=== PATIENT | female | born 1950 | race Caucasian/White ===

== ENCOUNTER 2017-05-29 19:51 | Emergency (ER) | payer MEDICARE ==
--- NOTE | 2017-05-29 22:03 | RAD ---
TWO VIEWS OF THE LEFT HUMERUS 05/29/17 COMPARISON: None. HISTORY: Fall, trauma, pain. FINDINGS: There is a obliquely oriented mildly comminuted transverse fracture of the mid shaft left humerus. Di stal fracture fragment is displaced laterally b 1.8 cm and demonstrates dorsal angulation. IMPRESSION: Displaced and angulated mid shaft left humerus fracture. POS: [facility]
--- NOTE | 2017-05-29 22:25 | CT ---
HEAD CT WITHOUT CONTRAST 05/29/17 COMPARISON: None. HISTORY: Fall, trauma, pain. TECHNIQUE: Serial axial CT imaging at 5 mm intervals from vertex through skull base without contrast. FINDINGS: There is atherosclerotic calcification of the cavernous carotid arteries. The imaged paranasal sinuses/mastoid air cells are well aerated. There is no displaced calvarial frac ture. There is no intracranial hemorrhage, midline shift, or mass effect. There is an area of encephalomalacia involving the lateral posterior aspect of the right frontal niyah on, evidence of a prior right MCA infarction. IMPRESSION: Evidence of prior right MCA infarction. No intracranial hemorrhage or displaced calvarial fracture. POS: [facility]
== END 2017-05-29 20:55 | disposition home or self-care (01) ==
LOC: ERS 19:51
DX: S42.302A Unspecified fracture of shaft of humerus, left arm, initial encounter for closed fracture (principal); I10 Essential (primary) hypertension; J44.9 Chronic obstructive pulmonary disease, unspecified; F17.210 Nicotine dependence, cigarettes, uncomplicated; W22.8XXA Striking against or struck by other objects, initial encounter
CPT/HCPCS: 29105; 70450; 96374; 96376; 99406; J2270

== ENCOUNTER 2017-06-04 07:11 | Emergency (ER) | payer MEDICARE ==
--- NOTE | 2017-06-04 08:18 | RAD ---
TWO VIEWS LEFT HUMERUS: Date: 06-04-17 History: Left arm fracture. Patient reports increased pain and swelling. Patient has orthopedic appoi ntment tomorrow. Comparison: 05-29-17 FINDINGS: Again noted is the displaced and mildly angulated fracture involving the middle one-third left javier l diaphysis. The distal fracture fragment is again displaced laterally and on today's examination dis placement measures approximately 1.5 cm. Mild angulation of the fracture fragment is also again seen. There is adjacent subcutaneous soft tissue swelling. No other findings. IMPRESSION: Overall stable displaced angulated fracture midshaft left humerus. POS: [facility]
== END 2017-06-04 08:45 | disposition home or self-care (01) ==
LOC: ERS 07:11
DX: S42.302A Unspecified fracture of shaft of humerus, left arm, initial encounter for closed fracture (principal); J44.9 Chronic obstructive pulmonary disease, unspecified; I10 Essential (primary) hypertension; F17.210 Nicotine dependence, cigarettes, uncomplicated; W19.XXXA Unspecified fall, initial encounter
CPT/HCPCS: 96372; 99406; J2270

== ENCOUNTER 2017-06-19 14:52 | Emergency (ER) | payer MEDICARE ==
[2017-06-19 18:31] LABS: #Eosinphils 0.1 thou/uL (0.0-0.7); #Monocytes 0.7 thou/uL (0.11-0.59); #Neutrophils 6.6 thou/uL (1.40-6.50); %Basophils 0.3 % (0.0-1.0); %Eosinophils 1.2 % (0.0-10.0); %Lymphocytes 11.8 % (21.0-51.0); %Monocytes 8.8 % (0.0-10.0); %Neutrophils 77.9 % (42.0-75.0); Hemoglobin 14.2 g/dL (12.0-16.0); Mean Corpuscular HGB CONC 33.5 g/dL (32.0-36.0); Mean Corpuscular Hemoglobin 32.9 pg (27.0-31.0); Mean Corpuscular Volume 98.4 fl (81.0-99.0); Mean Platelet Volume 6.6 fL (7.4-10.4); Platelet Count 358 thou/uL (130-400); RBC Distribution Width 11.8 % (11.5-14.5); Red Blood Cell (RBC) Count 4.31 mill/uL (4.20-5.40); White Blood Cell (WBC) Count 8.5 thou/uL (4.8-10.8)
[2017-06-19 18:47] LABS: ALT (SGPT) 13 U/L (8-55); AST (SGOT) 12 U/L (5-34); Albumin 4.2 g/dL (3.4-4.8); Alkaline Phosphatase 68 U/L (40-150); Anion Gap 14 mmol/L (10-20); BUN (Urea Nitrogen) 11 mg/dL (9.8-20.1); Bilirubin, Total 0.6 mg/dL (0.2-1.2); CK (CPK) 45 U/L (29-168); Calc. Creatinine Clearance 0 mL/min (70-130); Calcium 10.2 mg/dL (7.8-10.44); Carbon Dioxide 24 mmol/L (23-31); Chloride 97 mmol/L (98-107); Estimated GFR-MDRD 74; Globulin 3.1 g/dL (2.4-3.5); Glucose 117 mg/dL (80-115); Protein, Total 7.3 g/dL (6.0-8.3); Sodium 131 mmol/L (136-145)
--- NOTE | 2017-06-19 18:55 | RAD ---
LEFT HUMERUS: 06/19/17 Two views. HISTORY: Injury with pain. Comparison made to left humerus films of 06/04/17. FINDINGS/IMPRESSION: Prior films reveal a transverse displaced and mildly angulated fracture of the mid shaft left humerus . On today's exam, the transverse displaced fracture is again noted. There is increased displacement to day with slight overriding fragments. POS: [facility]
[2017-06-19] MEDS ORDERED: Morphine 4 MG/ML VIAL ONE ×2 (20:13→23:40)
[2017-06-20] MEDS ORDERED: HYDROcodone/Acetaminophen 10/325 mg Tablet ONE (00:18)
== END 2017-06-20 00:26 | disposition home or self-care (01) ==
LOC: ERS 14:52
DX: S42.322A Displaced transverse fracture of shaft of humerus, left arm, initial encounter for closed fracture (principal); J44.9 Chronic obstructive pulmonary disease, unspecified; F17.210 Nicotine dependence, cigarettes, uncomplicated; Z79.899 Other long term (current) drug therapy; Z79.891 Long term (current) use of opiate analgesic; W19.XXXA Unspecified fall, initial encounter
CPT/HCPCS: 29105; 36415; 80053; 82550; 83605; 85025; 85652; 86140; 96374; 96376; J2270

== ENCOUNTER → 2018-05-28 | Day surgery (SDC) | payer MEDICARE ==
--- NOTE | 2018-05-28 08:57 | HP ---
HISTORY OF PRESENT ILLNESS: Codie Daniel is 68-year-old female, who is a retired cook, single, lives with a friend, followed by [facility] physicians, seen by Dr. Deniz Jensen in the past and Dr. Pineda late last year. The patient has had a [address] Jensen, noting a medium-sized hiatal hernia, normal duodenum and esophagus. The patient takes Protonix daily and takes Prilosec for breakthrough symptoms as well as nice-dpr-wknpbby medication for breakthrough symptoms. She does smoke about a fourth pack cigarettes a day. She does drink caffeine occasionally. She will avoid late-night meals. She is interested in anti-reflux surgery as well as repair of her hiatal hernia as she used to living with her breakthrough reflux symptoms. Dr. Jensen has suggested manometry, but she did not followthrough with this. I stressed with her the importance of obtaining this esophageal manometry prior to surgery and we will arrange that. The patient also had a stress test and other evaluations of cardiac with Dr. Pineda, but she never had a followup appointment. We will obtain those results and does discuss with Dr. Pineda, prior to surgery. For financial reasons, she does not want to have anything done until the May 09. Plan esophageal manometry on May 09. Review her Cardiology evaluation with Dr. Pineda. She may need a followup appointment prior to her surgery, plan laparoscopic hiatal hernia repair and Clair fundoplication if deemed appropriate after esophageal manometry. ALLERGIES: SULFA. SOCIAL HISTORY: Tobacco, 1/4th pack per day. Alcohol, 12 pack of beer a month. PAST SURGICAL HISTORY: Umbilical hernia repair, tonsillectomy, bilateral tubal ligation, D and C, colonoscopy years past, and appendectomy. REVIEW OF SYSTEMS: Ten-point noncontributory. MEDICATIONS: 1. Protonix 40 mg a day. 2. Prilosec as needed for breakthrough reflux symptoms. 3. Gwrw-dph-nftpayo antacids as needed. 4. Spiriva daily. 5. Lisinopril 40 mg a day. 6. Symbicort 3 times a day. 7. Ventolin inhaler as needed. PHYSICAL EXAMINATION: VITAL SIGNS: 152 pounds and 5 feet 6 inches. 134/77, 120, and 97.3 degrees. HEAD, EARS, EYES, NOSE, AND THROAT: Unremarkable. LUNGS: Clear to auscultation. CARDIAC: Regular rate and rhythm without murmur or gallop. ABDOMEN: Soft and nontender. EXTREMITIES: Unremarkable. ASSESSMENT AND PLAN: 1. Hiatal hernia with gastroesophageal reflux disease. We will plan completion manometry studies and obtaining results of her Cardiology evaluation and plan laparoscopic hiatal hernia repair and Clair fundoplication in the next few weeks. She understands risks of infection, bleeding, reoperation, and recurrence of symptoms. Understands postoperatively, she will have progression in her diet and that she should avoid eating bread, red meat, salads, fruits, and vegetables for the first 2 weeks postoperatively and progressed slowly to a regular food postoperatively. Questions answered. 2. Tobacco use. Encouraged tobacco cessation. 3. The patient underwent echocardiogram in May 2017 and nuclear PET scan in June [address] Pineda's office, both of which were normal. Echocardiogram revealed a 55% to 60% ejection fraction, some impaired relaxation, normal filling pressure. No wall motion abnormalities. She had grade 1 diastolic dysfunction. She had mild left atrial enlargement, mild right atrial enlargement. Normal tricuspid aortic and pulmonic valve. Aortic root was normal. There was no effusion. PET scan was normal. The patient does not need further cardiac intervention prior to planned laparoscopic hiatal hernia repair and Clair fundoplication. Job ID: [id number]
== END ==
LOC: ENDO/OP 08:04
PROVIDERS: ATTEND Internal Medicine Gastroenterology
DX: K21.9 Gastro-esophageal reflux disease without esophagitis (principal); K44.9 Diaphragmatic hernia without obstruction or gangrene; F17.210 Nicotine dependence, cigarettes, uncomplicated; I48.91 Unspecified atrial fibrillation; I10 Essential (primary) hypertension; Z79.899 Other long term (current) drug therapy; Z88.2 Allergy status to sulfonamides
CPT/HCPCS: 91010

== ENCOUNTER 2018-07-11 02:07 | Outpatient (CLI) | payer MEDICARE ==
[2018-07-11 11:45] LABS: #Eosinphils 0.2 thou/uL (0.0-0.7); #Lymphocytes 1.5 thou/uL (1.20-3.40); #Monocytes 0.9 thou/uL (0.11-0.59); %Basophils 0.6 % (0.0-1.0); %Eosinophils 2.7 % (0.0-10.0); %Lymphocytes 19.9 % (21.0-51.0); %Monocytes 11.7 % (0.0-10.0); Hemoglobin 14.3 g/dL (12.0-16.0); Mean Corpuscular HGB CONC 33.4 g/dL (32.0-36.0); Mean Corpuscular Hemoglobin 32.7 pg (27.0-31.0); Mean Corpuscular Volume 97.8 fL (78.0-98.0); Mean Platelet Volume 7.7 fL (7.4-10.4); Platelet Count 306 thou/uL (130-400); RBC Distribution Width 11.9 % (11.5-14.5); Red Blood Cell (RBC) Count 4.38 mill/uL (4.20-5.40); White Blood Cell (WBC) Count 7.7 thou/uL (4.8-10.8)
--- NOTE | 2018-07-11 11:51 | RAD ---
2 VIEWS CHEST: Date: 07/11/18 COMPARISON: None. HISTORY: Preoperative radiograph. FINDINGS: Two views of the chest show normal sized cardiomediastinal silhouette. There is no evidence of consol idation, mass, or pleural effusion. The bones are unremarkable. IMPRESSION: No evidence of acute cardiopulmonary disease. POS: [facility]
[2018-07-11 12:36] LABS: ALT (SGPT) 15 U/L (8-55); AST (SGOT) 14 U/L (5-34); Albumin 4.4 g/dL (3.4-4.8); Alkaline Phosphatase 58 U/L (40-150); Anion Gap 15 mmol/L (10-20); BUN (Urea Nitrogen) 13 mg/dL (9.8-20.1); Bilirubin, Total 0.3 mg/dL (0.2-1.2); Calc. Creatinine Clearance 0 mL/min (70-130); Calcium 10.3 mg/dL (7.8-10.44); Carbon Dioxide 23 mmol/L (23-31); Chloride 96 mmol/L (98-107); Estimated GFR-MDRD 67; Globulin 2.9 g/dL (2.4-3.5); Glucose 118 mg/dL (80-115); Potassium 5.2 mmol/L (3.5-5.1); Protein, Total 7.3 g/dL (6.0-8.3); Sodium 129 mmol/L (136-145)
--- NOTE | 2018-07-11 14:48 | EKG ---
Test Reason : Blood Pressure : / mmHG Vent. Rate : 102 BPM Atrial Rate : 102 BPM P-R Int : 202 ms QRS Dur : 092 ms QT Int : 348 ms P-R-T Axes : 079 062 060 degrees QTc Int : 453 ms Sinus tachycardia with occasional , and consecutive Premature ventricular complexes with 1st degree A-V block Cannot rule out Anterior infarct , age undetermined Abnormal ECG Confirmed by KULWANT MENDEZ, DR. Fierro ([id number]) on 07/11/2018 2:48:07 PM Referred By: EDITH Confirmed By:DR. Sri BLUM MD
== END 2018-07-11 02:08 | disposition home or self-care (01) ==
LOC: LABBT 02:07
PROVIDERS: ATTEND Specialist
DX: Z01.818 Encounter for other preprocedural examination (principal); K44.9 Diaphragmatic hernia without obstruction or gangrene; K21.9 Gastro-esophageal reflux disease without esophagitis
CPT/HCPCS: 71046; 80053; 85025; 93005; 93010

== ENCOUNTER 2018-07-16 06:33 | Inpatient (IN) | payer MEDICARE ==
--- NOTE | 2018-07-14 10:15 | HP ---
ADDENDUM: To dictation #[id number], dictated on 04/22/2018. HISTORY OF PRESENT ILLNESS: Codie Daniel is a 68-year-old female whom I have been seeing for hiatal hernia and GERD. She has been waiting, she states, for 5 years to have this fixed. She has seen Dr. Donald Askew, had an EGD done, noting a hiatal hernia. She had 24-hour pH monitoring and esophageal manometry, which showed evidence of normal peristalsis with GERD. She has seen Dr. Pineda and a stress test performed was normal. She had grade 1/3 diastolic dysfunction. She did have ABIs during that visit demonstrating findings consistent with claudication. She continues to smoke 1 to 3 cigarettes a day. She states she smells of alcohol in the office. EKG at Dr. Pineda's office on 06/24/2018 was normal. Stress test in the past with Lexiscan normal. The patient is followed by [place] [facility] physicians. MEDICATIONS: 1. Lisinopril 40 mg a day. 2. Hydrocodone p.r.n. pain. 3. Symbicort daily. 4. ProAir daily. 5. Protonix 40 mg a day. PAST SURGICAL HISTORY: 1. Tonsillectomy and appendectomy. 2. D and C. 3. Elbow surgery. 4. Wrist surgery. 5. Ankle surgery. PAST MEDICAL HISTORY: COPD, GERD, hypertension, hiatal hernia. PHYSICAL EXAMINATION: VITAL SIGNS: Blood pressure 137/67, pulse 80, Temperature 98.6 degrees, weight 152 pounds. HEAD, EARS, EYES, NOSE, AND THROAT: Unremarkable. LUNGS: Clear to auscultation. No wheezing. CARDIAC: Regular rate and rhythm without murmur or gallop. ABDOMEN: Soft, nontender. EXTREMITIES: Unremarkable. ASSESSMENT AND PLAN: 1. Gastroesophageal reflux disease, hiatal hernia, has completed esophageal manometry, 24 pH monitoring and upper endoscopy revealing hiatal hernia and gastroesophageal reflux disease changes. No abnormal peristalsis noted. Plan is laparoscopic Clair fundoplication and hiatal hernia repair. She understands risks, benefits and she consents. Have counseled her as to the importance of stopping smoking before and as far as decreasing secretions, improving healing, decreasing atelectasis, decrease in risk of pneumonia, minimizing risk of severe coughing postoperatively. Have also discussed with her the importance of perioperative diet adherence and diet progression, avoiding salads, meats, and breads perioperatively, avoiding carbonated beverages, which she states she does not drink any and slow progression of her diet to avoid retching, which would undo any operation that we do. She understands these risks and benefits. We will plan this for the first part of July. 2. Tobacco use. Tobacco cessation goal. Job ID: [id number]
[2018-07-16] MEDS ORDERED: Ketorolac Tromethamine 30 MG/ML VIAL ONE ×2 (07:30→14:38)
[2018-07-16] MEDS ORDERED: Bupivacaine/Epinephrine 0.25% 30 ML VIAL ONE (10:58)
[2018-07-16] MEDS ORDERED: Fentanyl 100 MCG/2 ML VIAL ONE ×5 (11:04→16:42)
[2018-07-16] MEDS ORDERED: Lidocaine 4% Topical Sol 50 ML BOT ONE (11:18)
[2018-07-16] MEDS ORDERED: PHENYLEPHRINE-NS 100 MCG/ML 10 ML SYRINGE ONE ×2 (13:15→14:32)
[2018-07-16] MEDS ORDERED: diphenhydrAMINE 50 MG/ML VIAL IVP PRN (13:45)
[2018-07-16] MEDS ORDERED: Ondansetron PF 4 MG/2 ML Vial IVP PRN (13:45)
[2018-07-16] MEDS ORDERED: Morphine 2 MG/ML SYRINGE SLOW IVP PRN (13:45)
[2018-07-16] MEDS ORDERED: hydrALAZINE 20 MG/ML VIAL SLOW IVP PRN (13:45)
[2018-07-16] MEDS ORDERED: Hydrocodone-Acetamin 15 ML UDCUP PO PRN (13:45)
[2018-07-16] MEDS ORDERED: Morphine 4 MG/ML VIAL SLOW IVP PRN (13:45)
[2018-07-16] MEDS ORDERED: Ondansetron ODT 8 MG TAB PO PRN (13:54)
[2018-07-16] MEDS ORDERED: Ondansetron ODT 4 MG TAB PO PRN (13:54)
[2018-07-16 14:14] LABS: Actual Bicarbonate (HCO3a) 25.5 mEq/L (22-28); Base Excess (BEa) -4.2 mEq/L (-2.0 to +3.0); Calcium, Ionized 1.24 mmol/L (1.12-1.30); Carboxyhemoglobin (COHb) 3.5 gm% (0.0-3.0); Hemoglobin (Hb) 13.6 g/dL (12.0-16.0); O2 Tension (PaO2) 66.6 mmHg (> 70.0)
--- NOTE | 2018-07-16 14:15 | RAD ---
EXAM: XR Chest 1 View PROVIDED CLINICAL HISTORY: Postoperative period COMPARISON: 07/11/2018 FINDINGS: The cardiac silhouette and pulmonary vasculature are within normal limits. No consolidation or pleura l fluid is seen. Vascular calcifications are again seen in the thoracic aorta. Degenerative changes a re again seen in the spine. There is a remote fracture deformity involving the diaphysis of the left humerus. Remote left-sided rib fractures are again noted. IMPRESSION: No acute cardiopulmonary process.
[2018-07-16 14:20] LABS: ALV-art Gradient 46.415 (0-20); CO2 Tension 69.3 mmHg (35.0-45.0); Puncture Site RRA; pH, Arterial 7.18 (7.35-7.45)
[2018-07-16] MEDS ORDERED: PROPOFOL 200 MG/20 ML VIAL ONE (14:32)
[2018-07-16] MEDS ORDERED: Succinylcholine Chloride 20 MG/ML 10 ml SYRINGE FS ONE (14:32)
[2018-07-16] MEDS ORDERED: Metoprolol Tartrate 5 MG/5 ML VIAL ONE (14:32)
[2018-07-16] MEDS ORDERED: Metoclopramide HCl 10 MG/2 ML VIAL ONE (14:32)
[2018-07-16] MEDS ORDERED: Glycopyrrolate 0.2 MG/ML 5 ML SYRINGE ONE (14:32)
[2018-07-16] MEDS ORDERED: diphenhydrAMINE 50 MG/ML VIAL ONE (14:32)
[2018-07-16] MEDS ORDERED: Rocuronium Bromide 10 MG/ML (10ML VIAL) ONE (14:32)
[2018-07-16] MEDS ORDERED: Dexamethasone 20 MG/5 ML VIAL ONE (14:32)
[2018-07-16] MEDS ORDERED: Lidocaine 1% PF 5 ML VIAL ONE (14:32)
[2018-07-16] MEDS ORDERED: SUGAMMADEX SODIUM 500 MG/5 ML VIAL ONE (14:39)
[2018-07-16 14:55] LABS: Actual Bicarbonate (HCO3a) 23.5 mEq/L (22-28); Analyzer IN Cardio OR; Base Excess (BEa) -2.8 mEq/L (-2.0 to +3.0); CO2 Tension 46.6 mmHg (35.0-45.0); Calcium, Ionized 1.18 mmol/L (1.12-1.30); Carboxyhemoglobin (COHb) 3.2 gm% (0.0-3.0); Hemoglobin (Hb) 13.3 g/dL (12.0-16.0); O2 Tension (PaO2) 69.5 mmHg (> 70.0); Potassium - ABG Lab 4.55 mmol/L (3.70-5.30); pH, Arterial 7.32 (7.35-7.45)
[2018-07-16 15:00] LABS: Puncture Site RRA
[2018-07-16] MEDS ORDERED: Ondansetron HCl/PF 4 MG/2 ML Vial IVP PRN (15:19)
[2018-07-16] MEDS ORDERED: Promethazine HCl 25 MG/ML VIAL SLOW IVP PRN (15:19)
[2018-07-16] MEDS ORDERED: Promethazine HCl 25 MG/ML VIAL IM PRN (15:19)
[2018-07-16] MEDS ORDERED: Ketorolac Tromethamine 30 MG/ML VIAL IVP SCH (18:00)
[2018-07-16 18:25] VITALS: BMI 24.5
[2018-07-16] MEDS: Acetaminophen 1,000 MG in Premix Bag 1 BAG IVPB SCH ×2 (18:34→20:28)
[2018-07-16] MEDS: Sodium Chloride 0.9% 1,000 ML IV SCH ×2 (18:34→20:33)
[2018-07-16] MEDS: PROVENTIL INHALER 6.7 G (200 INHALATIONS) INH SCH (18:55)
[2018-07-16] MEDS: Ketorolac Tromethamine 30 MG/ML VIAL IVP SCH (20:26)
[2018-07-16] MEDS: Gabapentin 100 MG CAP PO SCH (20:26)
[2018-07-16] MEDS ORDERED: Enoxaparin Sodium 40 MG/0.4 ML SYRINGE SC SCH (21:00)
[2018-07-17] MEDS: Acetaminophen 1,000 MG in Premix Bag 1 BAG IVPB SCH ×2 (01:58→08:37)
[2018-07-17] MEDS: Ketorolac Tromethamine 30 MG/ML VIAL IVP SCH ×3 (02:31→16:01)
[2018-07-17] MEDS: Sodium Chloride 0.9% 1,000 ML IV SCH ×2 (05:37→15:39)
[2018-07-17 06:43] LABS: #Basophils 0.1 thou/uL (0.0-0.2); #Monocytes 0.8 thou/uL (0.11-0.59); #Neutrophils 7.8 thou/uL (1.40-6.50); %Basophils 0.6 % (0.0-1.0); %Eosinophils 0.2 % (0.0-10.0); %Lymphocytes 10.1 % (21.0-51.0); %Monocytes 8.2 % (0.0-10.0); %Neutrophils 80.8 % (42.0-75.0); Hemoglobin 13.1 g/dL (12.0-16.0); Mean Corpuscular HGB CONC 33.3 g/dL (32.0-36.0); Mean Corpuscular Hemoglobin 32.3 pg (27.0-31.0); Mean Corpuscular Volume 97.1 fL (78.0-98.0); Mean Platelet Volume 7.1 fL (7.4-10.4); Platelet Count 277 thou/uL (130-400); Red Blood Cell (RBC) Count 4.06 mill/uL (4.20-5.40); White Blood Cell (WBC) Count 9.6 thou/uL (4.8-10.8)
[2018-07-17 07:03] LABS: Anion Gap 15 mmol/L (10-20); BUN (Urea Nitrogen) 12 mg/dL (9.8-20.1); Calc. Creatinine Clearance 68 mL/min (70-130); Calcium 9.4 mg/dL (7.8-10.44); Carbon Dioxide 24 mmol/L (23-31); Chloride 94 mmol/L (98-107); Estimated GFR-MDRD 67; Glucose 108 mg/dL (80-115); Potassium 4.5 mmol/L (3.5-5.1); Sodium 128 mmol/L (136-145)
[2018-07-17] MEDS: PROVENTIL INHALER 6.7 G (200 INHALATIONS) INH SCH (07:14)
--- NOTE | 2018-07-17 08:30 | OP ---
DATE OF PROCEDURE: 07/16/2018 PREOPERATIVE DIAGNOSIS: Hiatal hernia, symptomatic with gastroesophageal reflux. POSTOPERATIVE DIAGNOSIS: Hiatal hernia, symptomatic with gastroesophageal reflux. PROCEDURE: Laparoscopic hiatal hernia repair, laparoscopic Clair fundoplication over a 52-Persian bougie, laparoscopic gastropexy, completion upper endoscopy. ANESTHESIA: General, local 0.25% Marcaine with epinephrine 60 mL. DESCRIPTION OF PROCEDURE: The patient was taken to the operating room under general anesthesia, abdomen was prepared with ChloraPrep and draped in routine fashion. Local anesthetic was infiltrated in the skin and subcutaneous tissue about all port sites. Supraumbilical incision midline made and pneumoperitoneum to 15 mmHg obtained with a Veress needle, placed with a 5 port, laparoscope inserted. Right lateral subcostal incision made, a 5 port placed. Liver retractor inserted and the fatty liver reflected anterior and cephalad with Sousa liver retractor, held in place with Miguel's arm. Upper midline incision and left medial subcostal incision made and a 5 mm and 11 mm port placed. After these were placed, another 5 mm port was placed just inferior and midline to this to avoid liver injury with the graspers. Left lateral stab incision was made, a 5 port placed and a lower midclavicular incision made and another 5 port placed. Left and right crura identified, dissected free of the hiatal hernia sac. The esophagus, stomach identified, dissected free from the crura. Gastrohepatic ligament had been taken down with the LigaSure. The posterior window dissected free, identifying the left and right posterior crura. A short gastric was taken down from the upper 3rd to the fundus using the ligature, mobilizing the fundus and freeing the stomach from the splenic attachments and crural attachments. The posterior window was well developed. At this point, bougies were placed by anesthesia after the orogastric tube was removed. Bougies placed from a 40-Persian, 46-Persian, and then a 52-Persian bougie placed well into the stomach visualized laparoscopically. Once these were properly placed, posterior crura approximated with 2 sutures of 0 Bralon using the tie knots. Once this was completed, this was adequately snug without excessive tightness. At this point, Clair fundoplication undertaken creating a 360 degree wrap, we carefully positioned the fundus in proper position, securing the fundus from the left and right sides anteriorly with interrupted Bralon sutures placed about 2 to 2.5 cm apart using the upper Bralon and lower Bralon suture incorporating above the esophagus into the approximation. Once the Clair fundoplication was complete, the left and right anterior fundus of the wrap was approximated to the crura respectively left and right using 0 Bralon. Bougie tube removed and the Clair wrap was floppy as planned. Good hemostasis was obtained with the cautery and good hemostasis noted. Irrigant evacuated. Gastropexy undertaken with an 0 Bralon suture fastening the greater curvature of the mid stomach to the anterior abdominal wall, left upper quadrant. Once this was complete, this Bralon suture gastropexy was left loose as upper endoscopy performed. Scope placed per os under direct visualization and air insufflation and passed throughout the esophagus and the stomach. There was a good wrap superiorly. Scope passed easily, visualizing the pylorus. Scope withdrawn. Stomach deflated, and gastropexy suture tightened. Liver retractor removed after good liver hemostasis with cautery, irrigant evacuated, pneumoperitoneum evacuated. All instruments were removed. All skin incisions were approximated with interrupted subdermal 4-0 Monocryl and Turton glue applied. Job ID: [id number]
[2018-07-17] MEDS: Gabapentin 100 MG CAP PO SCH (08:36)
[2018-07-17] MEDS ORDERED: Spiriva 18 MCG CAP (Box of 5 Caps) INH SCH (09:00)
[2018-07-17] MEDS ORDERED: traMADol HCl 50 MG TAB PO PRN ×2 (09:00)
[2018-07-17] MEDS ORDERED: Lisinopril 20 MG TAB PO SCH (09:00)
[2018-07-17] MEDS ORDERED: Pantoprazole 40 MG VIAL IVP SCH (09:00)
[2018-07-17] MEDS ORDERED: Acetaminophen 500 MG TAB PO PRN (14:00)
[2018-07-17] MEDS ORDERED: Hydrocodone-Acetamin 15 ML UDCUP PO PRN (14:00)
[2018-07-17 16:04] VITALS: BP 127/66; TEMP 98.6
[2018-07-17] MEDS ORDERED: Sodium Chloride 0.9% 1,000 ML IV SCH (16:45)
[2018-07-17] MEDS ORDERED: Ibuprofen 600 MG TAB PO PRN (16:58)
--- NOTE | 2018-07-17 17:31 | PRG ---
DATE OF SERVICE: 07/17/2018 SUBJECTIVE: Codie Daniel is doing well today. One day status post laparoscopic hiatal hernia repair and Clair fundoplication and gastropexy. OBJECTIVE: VITAL SIGNS: Temperature 98.6 degrees, pulse 93, blood pressure 127/66. LUNGS: Clear to auscultation. CARDIAC: Regular rate and rhythm without murmur or gallop. ABDOMEN: Soft and nontender. Good bowel sounds. EXTREMITIES: Unremarkable. She is breathing normally and nonlabored. LABORATORY DATA: This morning, her white count is 9, hemoglobin 13. Basic metabolic profile is normal. ASSESSMENT AND PLAN: Doing well, status post above-mentioned surgery. Avoid bread, salads, and meats. Full liquids to GI soft diet. Advance slowly as tolerated. Avoid carbonation. She will take gwcc-bhw-telvthc Tylenol, ibuprofen for pain, Ultram as needed, gabapentin for a week 100 mg b.i.d. prescribed. She will follow up in my office in 2 to 3 weeks. Job ID: [id number]
[2018-07-17] MEDS ORDERED: Mometasone/Formoterol 120 PUFF INHALER INH SCH (18:30)
--- NOTE | 2018-07-17 23:20 | CON ---
DATE OF CONSULTATION: 07/17/2018 SERVICE: Pulmonary Medicine. HISTORY OF PRESENT ILLNESS: The patient is a 68-year-old white female with past medical history significant for horrendous gastroesophageal reflux disease. She wakes up in the middle of the night from time to time choking or gasping. Occasionally, she will have stomach contents in the back of her throat. Ultimately, this has been going on for a couple of years. It seems to be getting worse here recently. She presented for an elective Clair fundoplication. She was placed back in the hospital for close observation following the procedure. After the procedure, I find her awake and alert. She is comfortable. She indicates that her breathing is at baseline. She uses Spiriva and Symbicort on a daily basis. With this, she has very little need for ProAir. She uses it less than twice per week or twice per month at night. Otherwise, she has no specific complaints of fevers or chills. Her cough is at baseline. PAST MEDICAL HISTORY: 1. COPD. 2. Gastroesophageal reflux disease. 3. Hypertension. 4. Chronic diastolic heart failure. 5. Peripheral vascular disease. PAST SURGICAL HISTORY: 1. Tonsillectomy and adenoidectomy. 2. Dilation and curettage. 3. Elbow surgery. 4. Wrist surgery. 5. Ankle surgery. 6. Clair fundoplication. FAMILY HISTORY: Noncontributory. SOCIAL HISTORY: She continues to smoke about a 3rd of a pack on a daily basis. She has no exposure to chemicals, dust, asbestos, or tuberculosis otherwise. She denies any illicit drugs or excess alcohol use. ALLERGIES: SULFA. MEDICATIONS: List of her inpatient medications was reviewed. A couple of small updates were made. REVIEW OF SYSTEMS: General, head, ears, eyes, nose, throat, cardiovascular, respiratory, GI, , musculoskeletal, neurologic, and skin are negative except as mentioned in the HPI. PHYSICAL EXAMINATION: VITAL SIGNS: Afebrile, pulse 93, blood pressure 127/66, respirations 16, saturation 96% on room air. GENERAL: The patient is awake and alert, in no apparent distress. LUNGS: Reduced air entry. There is a prolonged expiratory phase. Minimal dependent crackles are noted. No rhonchi or wheezing appreciated. HEART: Normal rate, regular. ABDOMEN: Soft, nontender, nondistended. Bowel sounds are positive. MUSCULOSKELETAL: No cyanosis or clubbing. No pitting in the bilateral lower extremities. NEUROLOGIC: Grossly nonfocal. LABORATORY DATA: WBC 9.6, hemoglobin 13.1, platelets 277,000. PH 7.32, pCO2 47 , PO2 96. Basic metabolic profile is otherwise unremarkable. Sodium 128. ASSESSMENT: 1. Chronic obstructive pulmonary disease, severity not specified, at baseline. 2. Hyponatremia. 3. Obstructive sleep apnea, suspected. 4. Gastroesophageal reflux disease, status post Clair fundoplication, postop day 1. DISCUSSION AND PLAN: The patient is actually doing quite well from a respiratory standpoint. I talked to her about sleep apnea and the risks to go along with that including chronic heart disease, brain disease, and kidney disease. She understands that under the extreme circumstances if left untreated it can result in sudden cardiac . That being said, the patient is uninterested in pursuing a polysomnogram. Her medications are currently optimized. She is on a LABA, LAMA, and inhaled corticosteroid. She has infrequent use of albuterol. As such, it sounds as though her breathing issues are well controlled. My suspicion is that much of her choking sensation she gets at night is coming from her nocturnal reflux. She frequently eats a late into the evening, and in the middle of the night, if she is hungry, she will wake up and have food before going back to bed. I have suggested her to avoid these activities and she said she intended to continue doing them. I also made a suggestion she should elevate the head of her bed, and she declined. I will continue to follow with you while she remains in-house, but from a purely respiratory standpoint, she is stable for transition out of the hospital. She will follow up with her primary care physician as previously directed. 70 minutes have been devoted to this patient in various activities. I personally reviewed all imaging studies and laboratory data noted within this document. For fifty percent of this time, I was interacting with the patient at the bedside or coordinating care with the care team. For the remainder of the time I was immediately available to the patient in the hospital unit. Job ID: [id number] MTDD
--- NOTE | 2018-07-18 04:59 | DIS ---
DATE OF ADMISSION: 07/16/2018 DATE OF DISCHARGE: 07/17/2018 DISCHARGE DIAGNOSES: Hiatal hernia, reflux, chronic obstructive pulmonary disease, tobacco abuse, hypertension. PROCEDURES DURING HOSPITALIZATION: Laparoscopic Clair fundoplication, hiatal hernia repair, gastropexy, completion endoscopy. CONSULTATION: Dr. Barnes. The patient followed by [place] [facility] physicians. Preoperative scope by Dr. Askew, 24-hour pH monitoring, esophageal manometry, normal peristalsis with GERD. Preoperative evaluation Dr. Pineda's stress test was normal. Grade 1/3 diastolic dysfunction. ABIs performed in the past consistent with claudication. Continued tobacco abuse 1 to 3 cigarettes per day. She states she is trying to quit. 68-year-old female with the above-mentioned problems, admitted on day of surgery for the above-mentioned surgery. Postoperatively, had some problems respiratory matos with prolonged monitoring in the PACU. Pulmonary status stabilized and she was transferred to the floor, monitored overnight, and discharged home. She is on full liquids, GI soft diet as tolerated. Avoid eating salads, breads, and red meats for 1 to 2 weeks. Advancing her diet slowly. She will resume her home medication, lisinopril, Symbicort, ProAir, Protonix. In addition, I prescribed gabapentin 100 mg b.i.d., Ultram 50 mg p.o. q.i.d. p.r.n. pain, #22 refills. Follow up in my office in 2 to 3 weeks. Diet and activities as tolerated with the above mentioned descriptions. Encouraged not to smoke. Job ID: [id number]
== END 2018-07-17 17:24 | disposition home or self-care (01) | DRG 327 ==
LOC: SDC 06:33 → EDSTATUS 11:00 → OBSVTOIN 17:53 → SURG A 17:53
PROVIDERS: ADMIT Specialist; ATTEND Specialist
PROC: 0DV44ZZ Restriction of Esophagogastric Junction, Percutaneous Endoscopic Approach (ICD-10-PCS; principal; 2018-07-16)
PROC: 0BQT4ZZ Repair Diaphragm, Percutaneous Endoscopic Approach (ICD-10-PCS; 2018-07-16)
PROC: 0DJ68ZZ Inspection of Stomach, Via Natural or Artificial Opening Endoscopic (ICD-10-PCS; 2018-07-16)
DX: K44.9 Diaphragmatic hernia without obstruction or gangrene (principal); E87.1 Hypo-osmolality and hyponatremia; K21.9 Gastro-esophageal reflux disease without esophagitis; J44.9 Chronic obstructive pulmonary disease, unspecified; I10 Essential (primary) hypertension; I73.9 Peripheral vascular disease, unspecified; G47.33 Obstructive sleep apnea (adult) (pediatric); F17.210 Nicotine dependence, cigarettes, uncomplicated; Z71.6 Tobacco abuse counseling; Z90.89 Acquired absence of other organs; Z88.2 Allergy status to sulfonamides; Z98.890 Other specified postprocedural states
CPT/HCPCS: 36415; 36416; 71045; 80048; 82805; 85025; 94640; 94660; 94760; J0131; J0360; J0690; J1100; J1200; J1650; J1885; J2001; J2704; J2765; J3010; J7620

== ENCOUNTER 2019-04-20 10:48 | Outpatient (CLI) | payer MEDICARE ==
--- NOTE | 2019-04-20 11:32 | RAD ---
RADIOGRAPH CHEST 2 VIEWS: HISTORY: 69-year-old female with dyspnea. FINDINGS: There is no air space density, pulmonary edema, pleural effusion, pneumothorax, or cardiomegaly. IMPRESSION: No acute cardiopulmonary findings. jn [] POS: [facility]
== END 2019-04-20 10:49 | disposition home or self-care (01) ==
LOC: RAD 10:48
PROVIDERS: ATTEND Internal Medicine
DX: R06.00 Dyspnea, unspecified (principal)
CPT/HCPCS: 71046

== ENCOUNTER 2019-12-13 09:50 | Emergency (ER) | payer MEDICARE | END 2019-12-13 10:23 | disposition home or self-care (01) | LOC: ERS 09:50 | DX: J44.9 Chronic obstructive pulmonary disease, unspecified (principal); Z76.0 Encounter for issue of repeat prescription; I10 Essential (primary) hypertension; F17.210 Nicotine dependence, cigarettes, uncomplicated; Z79.51 Long term (current) use of inhaled steroids; Z79.899 Other long term (current) drug therapy | CPT/HCPCS: 99281 ==

== ENCOUNTER 2020-12-10 14:08 | Inpatient (IN) | payer MEDICARE ==
[2020-12-10 14:52] LABS: #Basophils 0.1 thou/uL (0.0-0.2); #Eosinphils 0.2 thou/uL (0.0-0.7); #Lymphocytes 1.4 thou/uL (1.20-3.40); #Monocytes 0.8 thou/uL (0.11-0.59); #Neutrophils 3.7 thou/uL (1.40-6.50); %Basophils 1.1 % (0.0-1.0); %Eosinophils 2.9 % (0.0-10.0); %Lymphocytes 22.9 % (21.0-51.0); %Monocytes 13.5 % (0.0-10.0); %Neutrophils 59.7 % (42.0-75.0); Hemoglobin 12.6 g/dL (12.0-16.0); Mean Corpuscular HGB CONC 34.9 g/dL (32.0-36.0); Mean Corpuscular Hemoglobin 32.2 pg (27.0-31.0); Mean Corpuscular Volume 92.2 fL (78.0-98.0); Mean Platelet Volume 6.4 fL (7.4-10.4); Platelet Count 346 thou/uL (130-400); RBC Distribution Width 11.6 % (11.5-14.5); Red Blood Cell (RBC) Count 3.91 mill/uL (4.20-5.40); White Blood Cell (WBC) Count 6.2 thou/uL (4.8-10.8)
[2020-12-10 15:38] LABS: Bacteria/HPF 4+ HPF (None Seen); Bilirubin Negative (Negative); Blood, Urine Negative (Negative); Clarity Clear (Clear); Glucose, Urine (Dipstick) Normal (Negative); Ketone, Urine Negative (Negative); Leukocyte 250 Leu/uL (Negative); Nitrite 1+ (Negative); Protein, Urine (Dipstick) Negative (Neg-Trace); RBC/HPF 0-3 HPF (0-3); Specific Gravity, Urine 1.009 (1.002-1.036); Squamous Epithelial 0-3 HPF (0-3); Urobilinogen Normal mg/dL (Less than 2); pH, Urine 5.5 (5.0-9.0)
[2020-12-10 16:17] LABS: ALT (SGPT) 11 U/L (8-55); AST (SGOT) 10 U/L (5-34); Alkaline Phosphatase 51 U/L (40-110); Anion Gap 13 mmol/L (10-20); BUN (Urea Nitrogen) 16 mg/dL (9.8-20.1); Bilirubin, Total 0.4 mg/dL (0.2-1.2); Calc. Creatinine Clearance 0 mL/min (70-130); Calcium 9.7 mg/dL (7.8-10.44); Carbon Dioxide 24 mmol/L (23-31); Chloride 87 mmol/L (98-107); Globulin 2.8 g/dL (2.4-3.5); Glucose 114 mg/dL (83-110); Lipase 9 U/L (8-78); Magnesium 1.7 mg/dL (1.6-2.6); Protein, Total 6.8 g/dL (5.8-8.1)
[2020-12-10 16:25] LABS: Sodium 119 mmol/L (136-145)
[2020-12-10 19:01] LABS: SARS-CoV-2 NAA Rapid Test Not Detected (NotDetected)
[2020-12-10] MEDS: Nicotine 14 MG PATCH TD SCH ×2 (20:10→20:11)
[2020-12-10] MEDS ORDERED: Sodium Chloride 0.9% 1,000 ML IV SCH (20:15)
[2020-12-10] MEDS ORDERED: Albuterol Sulfate 2.5 mg/3 ml Neb NEB PRN (21:03)
[2020-12-10 23:43] VITALS: BMI 28.6
[2020-12-11] MEDS: Ipratropium Bromide 2.5 ml Neb NEB SCH ×4 (01:21→18:21)
[2020-12-11 01:31] LABS: Anion Gap 9 mmol/L (10-20); BUN (Urea Nitrogen) 13 mg/dL (9.8-20.1); Calc. Creatinine Clearance 78 mL/min (70-130); Calcium 8.8 mg/dL (7.8-10.44); Carbon Dioxide 22 mmol/L (23-31); Chloride 92 mmol/L (98-107); Glucose 120 mg/dL (83-110); Potassium 4.4 mmol/L (3.5-5.1)
[2020-12-11 01:34] LABS: Sodium 119 mmol/L (136-145)
[2020-12-11] MEDS ORDERED: Sodium Chloride 0.9% (PF) 10 ML VIAL FS PRN (03:30)
[2020-12-11] MEDS ORDERED: Cosyntropin 250 MCG VIAL SLOW IVP SCH (06:00)
[2020-12-11] MEDS ORDERED: Sodium Chloride 0.9% 1,000 ML IV SCH (06:30)
[2020-12-11 06:52] LABS: Anion Gap 9 mmol/L (10-20); BUN (Urea Nitrogen) 11 mg/dL (9.8-20.1); Calc. Creatinine Clearance 80 mL/min (70-130); Carbon Dioxide 25 mmol/L (23-31); Chloride 93 mmol/L (98-107); Glucose 112 mg/dL (83-110); Potassium 4.9 mmol/L (3.5-5.1); Sodium 122 mmol/L (136-145)
[2020-12-11] MEDS ORDERED: Non-Formulary Item 1 EACH (Lisinopril [Lisinopril] 40 MG Tablet) PO SCH (09:00)
[2020-12-11] MEDS: Sodium Chloride 1 GM TAB PO SCH ×2 (09:51→15:28)
[2020-12-11] MEDS: Enoxaparin Sodium 40 MG/0.4 ML SYRINGE SC SCH (09:52)
[2020-12-11] MEDS: Atorvastatin Calcium 40 MG TAB PO SCH (09:53)
[2020-12-11] MEDS ORDERED: Iopamidol-370 76% 500 ML 1 ML ONE (09:55)
[2020-12-11 10:15] LABS: Anion Gap 11 mmol/L (10-20); BUN (Urea Nitrogen) 10 mg/dL (9.8-20.1); Calc. Creatinine Clearance 80 mL/min (70-130); Calcium 9.1 mg/dL (7.8-10.44); Carbon Dioxide 22 mmol/L (23-31); Chloride 87 mmol/L (98-107); Glucose 105 mg/dL (83-110); Potassium 4.9 mmol/L (3.5-5.1)
[2020-12-11 10:23] LABS: Sodium 115 mmol/L (136-145)
[2020-12-11 14:41] LABS: Anion Gap 12 mmol/L (10-20); BUN (Urea Nitrogen) 9 mg/dL (9.8-20.1); Calc. Creatinine Clearance 78 mL/min (70-130); Calcium 9.2 mg/dL (7.8-10.44); Carbon Dioxide 21 mmol/L (23-31); Chloride 91 mmol/L (98-107); Glucose 93 mg/dL (83-110); Potassium 4.7 mmol/L (3.5-5.1)
[2020-12-11 14:45] LABS: Sodium 119 mmol/L (136-145)
[2020-12-11 16:06] LABS: Bilirubin Negative (Negative); Blood, Urine Negative (Negative); Clarity Clear (Clear); Glucose, Urine (Dipstick) Normal (Negative); Ketone, Urine Negative (Negative); Leukocyte 250 Leu/uL (Negative); Nitrite Negative (Negative); Protein, Urine (Dipstick) Negative (Neg-Trace); Specific Gravity, Urine 1.024 (1.002-1.036); Urobilinogen Normal mg/dL (Less than 2); pH, Urine 5.5 (5.0-9.0)
[2020-12-11 18:11] LABS: Anion Gap 9 mmol/L (10-20); BUN (Urea Nitrogen) 9 mg/dL (9.8-20.1); Calc. Creatinine Clearance 78 mL/min (70-130); Calcium 8.8 mg/dL (7.8-10.44); Carbon Dioxide 22 mmol/L (23-31); Chloride 92 mmol/L (98-107); Glucose 126 mg/dL (83-110)
[2020-12-11 18:16] LABS: Sodium 119 mmol/L (136-145)
[2020-12-11] MEDS: Mometasone 200 MCG/Formoterol 5 MCG 120 PUFF INHALER INH SCH (18:30)
[2020-12-11] MEDS ORDERED: Sodium Chloride 3% 500 ML IVPB SCH (20:00)
[2020-12-11] MEDS: Nicotine 14 MG PATCH TD SCH (20:28)
[2020-12-11 22:33] LABS: Anion Gap 10 mmol/L (10-20); BUN (Urea Nitrogen) 8 mg/dL (9.8-20.1); Calc. Creatinine Clearance 80 mL/min (70-130); Calcium 8.9 mg/dL (7.8-10.44); Carbon Dioxide 22 mmol/L (23-31); Chloride 93 mmol/L (98-107); Glucose 104 mg/dL (83-110); Potassium 4.3 mmol/L (3.5-5.1); Sodium 121 mmol/L (136-145)
[2020-12-12] MEDS: Ipratropium Bromide 2.5 ml Neb NEB SCH ×4 (01:09→18:27)
[2020-12-12 05:26] LABS: Anion Gap 9 mmol/L (10-20); BUN (Urea Nitrogen) 8 mg/dL (9.8-20.1); Calc. Creatinine Clearance 79 mL/min (70-130); Calcium 8.7 mg/dL (7.8-10.44); Carbon Dioxide 24 mmol/L (23-31); Chloride 95 mmol/L (98-107); Glucose 100 mg/dL (83-110); Potassium 4.5 mmol/L (3.5-5.1); Sodium 123 mmol/L (136-145)
[2020-12-12] MEDS: Enoxaparin Sodium 40 MG/0.4 ML SYRINGE SC SCH (08:14)
[2020-12-12] MEDS: Atorvastatin Calcium 40 MG TAB PO SCH (08:14)
[2020-12-12] MEDS: Mometasone 200 MCG/Formoterol 5 MCG 120 PUFF INHALER INH SCH ×2 (08:19→18:23)
[2020-12-12 15:14] LABS: Anion Gap 10 mmol/L (10-20); BUN (Urea Nitrogen) 8 mg/dL (9.8-20.1); Calc. Creatinine Clearance 83 mL/min (70-130); Calcium 8.9 mg/dL (7.8-10.44); Carbon Dioxide 23 mmol/L (23-31); Chloride 101 mmol/L (98-107); Glucose 103 mg/dL (83-110); Potassium 4.4 mmol/L (3.5-5.1); Sodium 130 mmol/L (136-145)
[2020-12-12] MEDS: Sodium Chloride 1 GM TAB PO SCH ×2 (15:16→21:11)
[2020-12-12 19:42] LABS: Anion Gap 11 mmol/L (10-20); BUN (Urea Nitrogen) 8 mg/dL (9.8-20.1); Calc. Creatinine Clearance 78 mL/min (70-130); Calcium 8.7 mg/dL (7.8-10.44); Carbon Dioxide 22 mmol/L (23-31); Chloride 101 mmol/L (98-107); Glucose 130 mg/dL (83-110); Sodium 130 mmol/L (136-145)
[2020-12-12] MEDS: Nicotine 14 MG PATCH TD SCH (21:11)
[2020-12-13] MEDS: Ipratropium Bromide 2.5 ml Neb NEB SCH ×3 (01:10→14:23)
[2020-12-13 03:09] LABS: Anion Gap 9 mmol/L (10-20); BUN (Urea Nitrogen) 9 mg/dL (9.8-20.1); Calc. Creatinine Clearance 85 mL/min (70-130); Calcium 8.5 mg/dL (7.8-10.44); Carbon Dioxide 23 mmol/L (23-31); Chloride 100 mmol/L (98-107); Glucose 110 mg/dL (83-110); Sodium 128 mmol/L (136-145)
[2020-12-13] MEDS: Mometasone 200 MCG/Formoterol 5 MCG 120 PUFF INHALER INH SCH (07:13)
[2020-12-13 07:33] LABS: Anion Gap 10 mmol/L (10-20); BUN (Urea Nitrogen) 8 mg/dL (9.8-20.1); Calc. Creatinine Clearance 81 mL/min (70-130); Calcium 9.2 mg/dL (7.8-10.44); Carbon Dioxide 24 mmol/L (23-31); Chloride 98 mmol/L (98-107); Glucose 103 mg/dL (83-110); Potassium 4.1 mmol/L (3.5-5.1); Sodium 128 mmol/L (136-145)
[2020-12-13 08:13] VITALS: TEMP 98
[2020-12-13] MEDS: Sodium Chloride 1 GM TAB PO SCH (08:15)
[2020-12-13] MEDS: Atorvastatin Calcium 40 MG TAB PO SCH (08:15)
[2020-12-13] MEDS: Enoxaparin Sodium 40 MG/0.4 ML SYRINGE SC SCH (08:16)
[2020-12-13 12:57] LABS: Anion Gap 11 mmol/L (10-20); BUN (Urea Nitrogen) 7 mg/dL (9.8-20.1); Calc. Creatinine Clearance 80 mL/min (70-130); Carbon Dioxide 23 mmol/L (23-31); Chloride 98 mmol/L (98-107); Glucose 113 mg/dL (83-110); Potassium 3.9 mmol/L (3.5-5.1); Sodium 128 mmol/L (136-145)
[2020-12-13] MEDS ORDERED: Amlodipine 5 MG TAB PO SCH (13:30)
[2020-12-13 13:34] VITALS: BP 170/72
[2020-12-13 13:44] LABS: ALT (SGPT) 11 U/L (8-55); AST (SGOT) 12 U/L (5-34); Albumin 3.8 g/dL (3.4-4.8); Alkaline Phosphatase 41 U/L (40-110); Bilirubin, Direct 0.2 mg/dL (0.1-0.3); Bilirubin, Total 0.4 mg/dL (0.2-1.2); Protein, Total 6.4 g/dL (5.8-8.1)
[2020-12-14] MEDS ORDERED: Amlodipine 5 MG TAB PO SCH (09:00)
== END 2020-12-13 16:15 | disposition home or self-care (01) | DRG 644 ==
LOC: ERS 14:08 → ERHOLD 16:59 → ONC 19:46 → OBSVTOIN 12-11 09:25
PROVIDERS: ADMIT Student in an Organized Health Care Education/Training Program; ATTEND Student in an Organized Health Care Education/Training Program
DX: E22.2 Syndrome of inappropriate secretion of antidiuretic hormone (principal); E44.0 Moderate protein-calorie malnutrition; J44.9 Chronic obstructive pulmonary disease, unspecified; E78.5 Hyperlipidemia, unspecified; I10 Essential (primary) hypertension; K21.9 Gastro-esophageal reflux disease without esophagitis; R82.71 Bacteriuria; I44.0 Atrioventricular block, first degree; K44.9 Diaphragmatic hernia without obstruction or gangrene; F17.210 Nicotine dependence, cigarettes, uncomplicated; Z20.822 Contact with and (suspected) exposure to COVID-19; Z88.2 Allergy status to sulfonamides; Z79.51 Long term (current) use of inhaled steroids; Z79.899 Other long term (current) drug therapy; Z90.49 Acquired absence of other specified parts of digestive tract; Z98.51 Tubal ligation status; Z90.89 Acquired absence of other organs; Z98.890 Other specified postprocedural states; Z68.28 Body mass index [BMI] 28.0-28.9, adult
CPT/HCPCS: 36415; 71045; 74177; 74220; 76705; 80048; 80053; 80076; 80307; 81003; 81015; 82436; 82533; 83690; 83735; 83930; 83935; 84133; 84300; 84443; 85025; 87077; 87086; 87186; 93005; 94640; G0378; J1580; J1650; J3490; J7050; J7131; Q9967; U0002

== ENCOUNTER 2021-02-06 13:27 | Outpatient (CLI) | payer MEDICARE ==
[2021-02-07 00:09] LABS: SARS-CoV-2 PCR by NAA Not Detected (NotDetected)
== END 2021-02-06 13:28 | disposition home or self-care (01) ==
LOC: LABBT 13:27
PROVIDERS: ATTEND Internal Medicine Gastroenterology
DX: Z01.812 Encounter for preprocedural laboratory examination (principal); K21.9 Gastro-esophageal reflux disease without esophagitis; R63.0 Anorexia; R63.4 Abnormal weight loss; R10.13 Epigastric pain; Z20.822 Contact with and (suspected) exposure to COVID-19
CPT/HCPCS: U0003; U0005

== ENCOUNTER 2021-02-09 06:51 | Day surgery (SDC) | payer MEDICARE ==
[2021-02-08 15:02] VITALS: BMI 23.9
[2021-02-09] MEDS ORDERED: Lidocaine 1% PF 5 ML VIAL ONE (08:57)
[2021-02-09] MEDS ORDERED: PROPOFOL 200 MG/20 ML VIAL ONE (08:57)
== END 2021-02-09 10:11 | disposition home or self-care (01) ==
LOC: SDC 06:51
PROVIDERS: ATTEND Internal Medicine Gastroenterology
PROC: 0DJ08ZZ Inspection of Upper Intestinal Tract, Via Natural or Artificial Opening Endoscopic (ICD-10-PCS; principal; 2021-02-09)
DX: K91.89 Other postprocedural complications and disorders of digestive system (principal); K22.10 Ulcer of esophagus without bleeding; K21.9 Gastro-esophageal reflux disease without esophagitis; I48.91 Unspecified atrial fibrillation; I10 Essential (primary) hypertension; F17.210 Nicotine dependence, cigarettes, uncomplicated; J44.9 Chronic obstructive pulmonary disease, unspecified; R63.0 Anorexia; R63.4 Abnormal weight loss; Z68.24 Body mass index [BMI] 24.0-24.9, adult; Z79.899 Other long term (current) drug therapy; Z88.2 Allergy status to sulfonamides; Y83.8 Other surgical procedures as the cause of abnormal reaction of the patient, or of later complication, without mention of misadventure at the time of the procedure
CPT/HCPCS: J2704

== ENCOUNTER 2021-12-12 13:23 | Outpatient (CLI) | payer MEDICARE | END 2021-12-12 13:24 | disposition home or self-care (01) | LOC: RAD 13:23 | PROVIDERS: ATTEND Internal Medicine Critical Care Medicine | DX: R06.09 Other forms of dyspnea (principal) | CPT/HCPCS: 71046 ==

== ENCOUNTER 2022-07-25 10:37 | Inpatient (IN) | payer MEDICARE ==
[2022-07-25 11:19] LABS: #Basophils 0.1 thou/uL (0.0-0.2); #Eosinphils 0.1 thou/uL (0.0-0.7); #Lymphocytes 0.9 thou/uL (1.20-3.40); #Monocytes 1.2 thou/uL (0.11-0.59); %Basophils 0.7 % (0.0-1.0); %Eosinophils 1.2 % (0.0-10.0); %Lymphocytes 8.1 % (21.0-51.0); %Monocytes 10.6 % (0.0-10.0); %Neutrophils 79.5 % (42.0-75.0); Hemoglobin 13.7 g/dL (12.0-16.0); Mean Corpuscular HGB CONC 34.2 g/dL (32.0-36.0); Mean Corpuscular Hemoglobin 32.3 pg (27.0-31.0); Mean Corpuscular Volume 94.5 fl (78.0-98.0); Mean Platelet Volume 6.4 fL (7.4-10.4); Platelet Count 365 10x3/uL (130-400); RBC Distribution Width 12.4 % (11.5-14.5); Red Blood Cell (RBC) Count 4.23 mill/uL (4.20-5.40); White Blood Cell (WBC) Count 11.4 10x3/uL (4.8-10.8)
[2022-07-25] MEDS ORDERED: Morphine 2 MG/ML VIAL ONE (11:24)
[2022-07-25 11:38] LABS: ALT (SGPT) Less than 7 U/L (8-55); AST (SGOT) 11 U/L (5-34); Albumin 3.9 g/dL (3.4-4.8); Alkaline Phosphatase 75 U/L (40-110); Anion Gap 16 mmol/L (10-20); BUN (Urea Nitrogen) 25 mg/dL (9.8-20.1); Bilirubin, Total 0.4 mg/dL (0.2-1.2); Calc. Creatinine Clearance 0 mL/min (70-130); Calcium 9.7 mg/dL (7.8-10.44); Carbon Dioxide 18 mmol/L (23-31); Chloride 93 mmol/L (98-107); Estimated GFR 62; Globulin 2.7 g/dL (2.4-3.5); Glucose 131 mg/dL (83-110); Lipase 7 U/L (8-78); Potassium 4.5 mmol/L (3.5-5.1); Protein, Total 6.6 g/dL (5.8-8.1); Sodium 122 mmol/L (136-145)
[2022-07-25 11:50] LABS: Bacteria/HPF 4+ HPF (None Seen); Bilirubin Negative (Negative); Blood, Urine Negative (Negative); Clarity Turbid (Clear); Glucose, Urine (Dipstick) Normal (Negative); Ketone, Urine Negative (Negative); Leukocyte 250 Leu/uL (Negative); Nitrite Negative (Negative); Protein, Urine (Dipstick) 10 mg/dL (Neg-Trace); RBC/HPF 0-3 HPF (0-3); Specific Gravity, Urine 1.014 (1.002-1.036); Squamous Epithelial 0-3 HPF (0-3); Urobilinogen Normal mg/dL (Less than 2); pH, Urine 6.5 (5.0-9.0)
[2022-07-25 11:53] LABS: INR-International Normal Ratio 0.9
[2022-07-25 12:00] LABS: CKMB 3.6 ng/mL (0-6.6)
[2022-07-25] MEDS ORDERED: cefTRIAXone (ROCEPHIN) 1 GM VIAL ONE (12:26)
[2022-07-25] MEDS ORDERED: Aspirin Chewable 81 MG TAB ONE (13:20)
[2022-07-25] MEDS ORDERED: Morphine 4 MG/ML VIAL SLOW IVP PRN (14:28)
[2022-07-25] MEDS ORDERED: Acetaminophen 325 MG TAB PO PRN (14:28)
[2022-07-25] MEDS ORDERED: Morphine 2 MG/ML VIAL SLOW IVP PRN (14:28)
[2022-07-25] MEDS ORDERED: Ondansetron ODT 4 MG TAB PO PRN (14:28)
[2022-07-25] MEDS ORDERED: Ipratropium/Albuterol 3 ML NEB NEB PRN (15:03)
[2022-07-25 16:46] LABS: Troponin I 0.103 ng/mL (< 0.028)
[2022-07-25 16:47] LABS: Anion Gap 13 mmol/L (10-20); BUN (Urea Nitrogen) 22 mg/dL (9.8-20.1); Calc. Creatinine Clearance 0 mL/min (70-130); Carbon Dioxide 19 mmol/L (23-31); Chloride 98 mmol/L (98-107); Estimated GFR 77; Glucose 105 mg/dL (83-110); Potassium 4.4 mmol/L (3.5-5.1); Sodium 126 mmol/L (136-145)
[2022-07-25 17:39] VITALS: BMI 21.9
[2022-07-25] MEDS: Ipratropium Bromide 2.5 ml Neb NEB SCH (19:07)
[2022-07-25 19:51] LABS: Troponin I 0.088 ng/mL (< 0.028)
[2022-07-25] MEDS ORDERED: Nitrofurantoin Monohyd/M-Cryst 100 MG CAP PO SCH (21:00)
[2022-07-26] MEDS: Ipratropium Bromide 2.5 ml Neb NEB SCH ×4 (01:52→18:58)
[2022-07-26 04:14] LABS: Amphetamine Not Detected (NotDetected); Barbiturates Screen Not Detected (NotDetected); Benzodiazepine Screen Not Detected (NotDetected); Cocaine Metabolite Screen Not Detected (NotDetected); Methadone Not Detected (NotDetected); Methamphetamine Not Detected (NotDetected); Opiate Screen Not Detected (NotDetected); Oxycodone Screen Not Detected (NotDetected); Phencyclidine (PCP) Not Detected (NotDetected); THC/Cannabinoid Screen Not Detected (NotDetected); Tricyclic Screen Not Detected (NotDetected)
[2022-07-26 04:19] LABS: #Eosinphils 0.3 thou/uL (0.0-0.7); #Lymphocytes 0.8 thou/uL (1.20-3.40); #Monocytes 0.9 thou/uL (0.11-0.59); #Neutrophils 4.9 thou/uL (1.40-6.50); %Basophils 0.3 % (0.0-1.0); %Eosinophils 4.4 % (0.0-10.0); %Lymphocytes 11.2 % (21.0-51.0); %Monocytes 12.7 % (0.0-10.0); %Neutrophils 71.5 % (42.0-75.0); Hemoglobin 11.8 g/dL (12.0-16.0); Mean Corpuscular Hemoglobin 32.3 pg (27.0-31.0); Mean Platelet Volume 6.6 fL (7.4-10.4); Platelet Count 280 10x3/uL (130-400); RBC Distribution Width 12.4 % (11.5-14.5); Red Blood Cell (RBC) Count 3.65 mill/uL (4.20-5.40); White Blood Cell (WBC) Count 6.8 10x3/uL (4.8-10.8)
[2022-07-26 04:50] LABS: Anion Gap 12 mmol/L (10-20); BUN (Urea Nitrogen) 18 mg/dL (9.8-20.1); Calc. Creatinine Clearance 68 mL/min (70-130); Calcium 8.9 mg/dL (7.8-10.44); Carbon Dioxide 18 mmol/L (23-31); Chloride 99 mmol/L (98-107); Estimated GFR 88; Glucose 100 mg/dL (83-110); Potassium 4.2 mmol/L (3.5-5.1); Sodium 125 mmol/L (136-145)
[2022-07-26] MEDS: Lisinopril 20 MG TAB PO SCH (09:43)
[2022-07-26] MEDS: Lidocaine 4% Patch TD SCH (09:43)
[2022-07-26] MEDS: Sodium Chloride 0.9% 1,000 ML IV SCH ×2 (10:44→20:53)
[2022-07-26] MEDS: Transdermal Patch Removal TOP SCH (20:54)
[2022-07-27] MEDS: Ipratropium Bromide 2.5 ml Neb NEB SCH (00:16)
[2022-07-27] MEDS: Sodium Chloride 0.9% 1,000 ML IV SCH (05:25)
[2022-07-27] MEDS ORDERED: Ipratropium Bromide 2.5 ml Neb NEB PRN (06:51)
[2022-07-27] MEDS: Lisinopril 20 MG TAB PO SCH (08:33)
[2022-07-27] MEDS: Lidocaine 4% Patch TD SCH (08:33)
[2022-07-27 09:30] LABS: #Eosinphils 0.3 thou/uL (0.0-0.7); #Lymphocytes 0.9 thou/uL (1.20-3.40); #Monocytes 0.5 thou/uL (0.11-0.59); #Neutrophils 4.5 thou/uL (1.40-6.50); %Eosinophils 4.3 % (0.0-10.0); %Lymphocytes 13.8 % (21.0-51.0); %Monocytes 8.8 % (0.0-10.0); %Neutrophils 73.1 % (42.0-75.0); Hemoglobin 11.1 g/dL (12.0-16.0); Mean Corpuscular HGB CONC 33.7 g/dL (32.0-36.0); Mean Platelet Volume 6.9 fL (7.4-10.4); Platelet Count 277 10x3/uL (130-400); RBC Distribution Width 12.5 % (11.5-14.5); Red Blood Cell (RBC) Count 3.47 mill/uL (4.20-5.40); White Blood Cell (WBC) Count 6.2 10x3/uL (4.8-10.8)
[2022-07-27 09:54] LABS: Anion Gap 11 mmol/L (10-20); BUN (Urea Nitrogen) 11 mg/dL (9.8-20.1); Calc. Creatinine Clearance 78 mL/min (70-130); Calcium 8.7 mg/dL (7.8-10.44); Carbon Dioxide 20 mmol/L (23-31); Chloride 97 mmol/L (98-107); Estimated GFR 92; Glucose 136 mg/dL (83-110); Potassium 4.3 mmol/L (3.5-5.1); Sodium 124 mmol/L (136-145)
[2022-07-27] MEDS ORDERED: HYDROcodone/Acetaminophen 5/325 mg Tablet PO PRN (09:55)
[2022-07-27] MEDS: HYDROcodone/Acetaminophen 5/325 mg Tablet PO SCH ×3 (11:24→22:42)
[2022-07-27] MEDS: hydrALAZINE 20 MG/ML VIAL SLOW IVP PRN (19:57)
[2022-07-27] MEDS: Baclofen 10 MG TAB PO SCH (19:57)
[2022-07-27] MEDS: Transdermal Patch Removal TOP SCH (19:58)
[2022-07-28] MEDS: HYDROcodone/Acetaminophen 5/325 mg Tablet PO SCH ×4 (04:09→21:05)
[2022-07-28 04:18] LABS: #Eosinphils 0.3 thou/uL (0.0-0.7); #Lymphocytes 0.8 thou/uL (1.20-3.40); #Monocytes 0.7 thou/uL (0.11-0.59); #Neutrophils 3.3 thou/uL (1.40-6.50); %Basophils 0.8 % (0.0-1.0); %Eosinophils 5.3 % (0.0-10.0); %Lymphocytes 16.1 % (21.0-51.0); %Neutrophils 64.8 % (42.0-75.0); Hemoglobin 11.6 g/dL (12.0-16.0); Mean Corpuscular HGB CONC 35.1 g/dL (32.0-36.0); Mean Corpuscular Hemoglobin 33.3 pg (27.0-31.0); Mean Corpuscular Volume 94.8 fl (78.0-98.0); Mean Platelet Volume 6.4 fL (7.4-10.4); Platelet Count 292 10x3/uL (130-400); RBC Distribution Width 12.4 % (11.5-14.5); Red Blood Cell (RBC) Count 3.48 mill/uL (4.20-5.40); White Blood Cell (WBC) Count 5.1 10x3/uL (4.8-10.8)
[2022-07-28 04:39] LABS: Anion Gap 13 mmol/L (10-20); BUN (Urea Nitrogen) 9 mg/dL (9.8-20.1); Calc. Creatinine Clearance 82 mL/min (70-130); Calcium 9.5 mg/dL (7.8-10.44); Carbon Dioxide 22 mmol/L (23-31); Chloride 98 mmol/L (98-107); Estimated GFR 93; Glucose 110 mg/dL (83-110); Potassium 4.4 mmol/L (3.5-5.1); Sodium 129 mmol/L (136-145)
[2022-07-28] MEDS: Lisinopril 20 MG TAB PO SCH (09:21)
[2022-07-28] MEDS: Lidocaine 4% Patch TD SCH (09:22)
[2022-07-28] MEDS: Baclofen 10 MG TAB PO SCH ×2 (09:22→21:05)
[2022-07-28] MEDS: hydrALAZINE 20 MG/ML VIAL SLOW IVP PRN ×2 (18:00→23:34)
[2022-07-28] MEDS: Transdermal Patch Removal TOP SCH (21:05)
[2022-07-29] MEDS: HYDROcodone/Acetaminophen 5/325 mg Tablet PO SCH ×4 (03:55→21:13)
[2022-07-29 05:04] LABS: #Eosinphils 0.4 thou/uL (0.0-0.7); #Lymphocytes 0.8 thou/uL (1.20-3.40); #Monocytes 0.6 thou/uL (0.11-0.59); #Neutrophils 2.8 thou/uL (1.40-6.50); %Basophils 0.9 % (0.0-1.0); %Eosinophils 7.9 % (0.0-10.0); %Monocytes 13.7 % (0.0-10.0); %Neutrophils 60.7 % (42.0-75.0); Hemoglobin 11.7 g/dL (12.0-16.0); Mean Corpuscular HGB CONC 33.7 g/dL (32.0-36.0); Mean Corpuscular Hemoglobin 31.5 pg (27.0-31.0); Mean Corpuscular Volume 93.5 fl (78.0-98.0); Mean Platelet Volume 6.9 fL (7.4-10.4); Platelet Count 308 10x3/uL (130-400); RBC Distribution Width 12.6 % (11.5-14.5); White Blood Cell (WBC) Count 4.6 10x3/uL (4.8-10.8)
[2022-07-29 05:20] LABS: Anion Gap 12 mmol/L (10-20); BUN (Urea Nitrogen) 8 mg/dL (9.8-20.1); Calc. Creatinine Clearance 84 mL/min (70-130); Calcium 9.5 mg/dL (7.8-10.44); Carbon Dioxide 23 mmol/L (23-31); Chloride 98 mmol/L (98-107); Estimated GFR 93; Glucose 103 mg/dL (83-110); Potassium 4.1 mmol/L (3.5-5.1); Sodium 129 mmol/L (136-145)
[2022-07-29] MEDS: Lidocaine 4% Patch TD SCH (09:35)
[2022-07-29] MEDS: Losartan 25 MG TAB PO SCH (09:35)
[2022-07-29] MEDS: Baclofen 10 MG TAB PO SCH ×2 (09:35→21:12)
[2022-07-29] MEDS: Transdermal Patch Removal TOP SCH (22:06)
[2022-07-30] MEDS: HYDROcodone/Acetaminophen 5/325 mg Tablet PO SCH (03:42)
[2022-07-30 04:52] LABS: #Eosinphils 0.4 thou/uL (0.0-0.7); #Lymphocytes 0.8 thou/uL (1.20-3.40); #Monocytes 0.6 thou/uL (0.11-0.59); #Neutrophils 2.8 thou/uL (1.40-6.50); %Basophils 0.6 % (0.0-1.0); %Eosinophils 8.5 % (0.0-10.0); %Lymphocytes 16.9 % (21.0-51.0); %Monocytes 13.4 % (0.0-10.0); %Neutrophils 60.6 % (42.0-75.0); Mean Corpuscular HGB CONC 32.9 g/dL (32.0-36.0); Mean Corpuscular Hemoglobin 31.1 pg (27.0-31.0); Mean Corpuscular Volume 94.5 fl (78.0-98.0); Mean Platelet Volume 6.7 fL (7.4-10.4); Platelet Count 324 10x3/uL (130-400); RBC Distribution Width 12.6 % (11.5-14.5); Red Blood Cell (RBC) Count 3.85 mill/uL (4.20-5.40); White Blood Cell (WBC) Count 4.7 10x3/uL (4.8-10.8)
[2022-07-30 05:02] LABS: Anion Gap 12 mmol/L (10-20); BUN (Urea Nitrogen) 10 mg/dL (9.8-20.1); Calc. Creatinine Clearance 75 mL/min (70-130); Calcium 9.2 mg/dL (7.8-10.44); Carbon Dioxide 25 mmol/L (23-31); Chloride 95 mmol/L (98-107); Estimated GFR 91; Glucose 120 mg/dL (83-110); Potassium 4.3 mmol/L (3.5-5.1); Sodium 128 mmol/L (136-145)
[2022-07-30] MEDS ORDERED: HYDROcodone/Acetaminophen 5/325 mg Tablet PO PRN ×2 (08:51→10:05)
[2022-07-30] MEDS ORDERED: Amlodipine 5 MG TAB PO SCH ×2 (09:00→18:00)
[2022-07-30] MEDS: Baclofen 10 MG TAB PO SCH ×2 (09:38→20:44)
[2022-07-30] MEDS: Lidocaine 4% Patch TD SCH (09:38)
[2022-07-30] MEDS: Losartan 25 MG TAB PO SCH (09:44)
[2022-07-30] MEDS: Transdermal Patch Removal TOP SCH (20:50)
[2022-07-31 07:07] LABS: #Eosinphils 0.2 thou/uL (0.0-0.7); #Lymphocytes 0.9 thou/uL (1.20-3.40); #Monocytes 0.7 thou/uL (0.11-0.59); #Neutrophils 3.7 thou/uL (1.40-6.50); %Basophils 0.6 % (0.0-1.0); %Eosinophils 3.9 % (0.0-10.0); %Monocytes 12.8 % (0.0-10.0); %Neutrophils 66.7 % (42.0-75.0); Hemoglobin 11.6 g/dL (12.0-16.0); Mean Corpuscular HGB CONC 33.1 g/dL (32.0-36.0); Mean Corpuscular Hemoglobin 31.1 pg (27.0-31.0); Mean Corpuscular Volume 94.1 fl (78.0-98.0); Mean Platelet Volume 6.6 fL (7.4-10.4); Platelet Count 306 10x3/uL (130-400); RBC Distribution Width 12.5 % (11.5-14.5); Red Blood Cell (RBC) Count 3.73 mill/uL (4.20-5.40); White Blood Cell (WBC) Count 5.5 10x3/uL (4.8-10.8)
[2022-07-31 07:28] LABS: Anion Gap 10 mmol/L (10-20); BUN (Urea Nitrogen) 8 mg/dL (9.8-20.1); Calc. Creatinine Clearance 77 mL/min (70-130); Calcium 9.3 mg/dL (7.8-10.44); Carbon Dioxide 25 mmol/L (23-31); Chloride 92 mmol/L (98-107); Estimated GFR 92; Glucose 117 mg/dL (83-110); Potassium 4.2 mmol/L (3.5-5.1); Sodium 123 mmol/L (136-145)
[2022-07-31] MEDS ORDERED: Amlodipine 10 MG TAB PO SCH (09:00)
[2022-07-31] MEDS: Losartan 25 MG TAB PO SCH ×2 (09:02→14:31)
[2022-07-31] MEDS: Lidocaine 4% Patch TD SCH (09:03)
[2022-07-31] MEDS: Baclofen 10 MG TAB PO SCH (09:03)
[2022-07-31] MEDS ORDERED: Sodium Chloride 1 GM TAB PO SCH (10:45)
[2022-07-31] MEDS: Acetaminophen 325 MG TAB PO SCH ×2 (11:18→17:06)
[2022-07-31] MEDS: Ibuprofen 600 MG TAB PO SCH ×2 (13:32→22:13)
[2022-07-31] MEDS: Sodium Chloride 1 GM TAB PO SCH ×2 (14:31→20:45)
[2022-07-31 16:13] LABS: Anion Gap 13 mmol/L (10-20); BUN (Urea Nitrogen) 10 mg/dL (9.8-20.1); Calc. Creatinine Clearance 77 mL/min (70-130); Calcium 9.1 mg/dL (7.8-10.44); Carbon Dioxide 25 mmol/L (23-31); Chloride 92 mmol/L (98-107); Estimated GFR 92; Glucose 185 mg/dL (83-110); Potassium 3.9 mmol/L (3.5-5.1); Sodium 126 mmol/L (136-145)
[2022-07-31] MEDS: Transdermal Patch Removal TOP SCH (20:49)
[2022-07-31 22:36] LABS: Anion Gap 12 mmol/L (10-20); BUN (Urea Nitrogen) 11 mg/dL (9.8-20.1); Calc. Creatinine Clearance 64 mL/min (70-130); Carbon Dioxide 25 mmol/L (23-31); Chloride 92 mmol/L (98-107); Estimated GFR 76; Glucose 105 mg/dL (83-110); Sodium 125 mmol/L (136-145)
[2022-08-01] MEDS: Acetaminophen 325 MG TAB PO SCH ×3 (00:24→11:03)
[2022-08-01] MEDS: Ibuprofen 600 MG TAB PO SCH ×2 (05:01→14:25)
[2022-08-01 06:49] LABS: #Eosinphils 0.3 thou/uL (0.0-0.7); #Lymphocytes 0.8 thou/uL (1.20-3.40); #Monocytes 0.6 thou/uL (0.11-0.59); #Neutrophils 2.8 thou/uL (1.40-6.50); %Basophils 0.4 % (0.0-1.0); %Eosinophils 6.2 % (0.0-10.0); %Lymphocytes 17.9 % (21.0-51.0); %Monocytes 13.7 % (0.0-10.0); %Neutrophils 61.8 % (42.0-75.0); Hemoglobin 11.2 g/dL (12.0-16.0); Mean Corpuscular HGB CONC 32.8 g/dL (32.0-36.0); Mean Corpuscular Hemoglobin 31.6 pg (27.0-31.0); Mean Corpuscular Volume 96.1 fl (78.0-98.0); Platelet Count 298 10x3/uL (130-400); RBC Distribution Width 12.5 % (11.5-14.5); Red Blood Cell (RBC) Count 3.56 mill/uL (4.20-5.40); White Blood Cell (WBC) Count 4.5 10x3/uL (4.8-10.8)
[2022-08-01 07:14] LABS: Anion Gap 12 mmol/L (10-20); BUN (Urea Nitrogen) 9 mg/dL (9.8-20.1); Calc. Creatinine Clearance 73 mL/min (70-130); Calcium 9.1 mg/dL (7.8-10.44); Carbon Dioxide 25 mmol/L (23-31); Chloride 93 mmol/L (98-107); Estimated GFR 89; Glucose 104 mg/dL (83-110); Sodium 126 mmol/L (136-145)
[2022-08-01 08:14] VITALS: BP 151/78; TEMP 97.8
[2022-08-01] MEDS: Sodium Chloride 1 GM TAB PO SCH ×2 (08:23→14:24)
[2022-08-01] MEDS: Lidocaine 4% Patch TD SCH (08:24)
[2022-08-01] MEDS ORDERED: Losartan 25 MG TAB PO SCH (09:00)
[2022-08-01] MEDS ORDERED: Baclofen 10 MG TAB PO SCH (09:00)
[2022-08-01 12:43] LABS: Potassium 4.5 mmol/L (3.5-5.1); Sodium 125 mmol/L (136-145)
== END 2022-08-01 16:46 | disposition swing bed (61) | DRG 644 ==
LOC: ERS 10:37 → 2NO 15:22 → T4-A 07-30 21:58
PROVIDERS: ADMIT Family Medicine; ATTEND Family Medicine
DX: E22.2 Syndrome of inappropriate secretion of antidiuretic hormone (principal); S32.011A Stable burst fracture of first lumbar vertebra, initial encounter for closed fracture; R55 Syncope and collapse; M54.9 Dorsalgia, unspecified; I10 Essential (primary) hypertension; Z66 Do not resuscitate; F17.210 Nicotine dependence, cigarettes, uncomplicated; J44.9 Chronic obstructive pulmonary disease, unspecified; W19.XXXA Unspecified fall, initial encounter; Z88.2 Allergy status to sulfonamides; Z79.899 Other long term (current) drug therapy; Z98.890 Other specified postprocedural states; Z82.49 Family history of ischemic heart disease and other diseases of the circulatory system; Z83.6 Family history of other diseases of the respiratory system; Z90.49 Acquired absence of other specified parts of digestive tract; Z90.89 Acquired absence of other organs; I65.22 Occlusion and stenosis of left carotid artery
CPT/HCPCS: 36415; 70450; 71045; 72100; 72170; 80048; 80053; 80306; 81003; 81015; 82553; 83605; 83690; 83880; 83930; 83935; 84300; 84443; 84484; 85025; 85610; 85652; 85730; 86140; 87040; 87086; 93005; 93306; 93880; 94640; 96361; 96365; 96375; J0360; J0696; J1650; J2270; J2272; J7050

== ENCOUNTER 2022-08-19 09:11 | Inpatient (IN) | payer MEDICARE ==
[2022-08-19 09:46] LABS: #Basophils 0.1 thou/uL (0.0-0.2); #Monocytes 1.4 thou/uL (0.11-0.59); #Neutrophils 23.5 thou/uL (1.40-6.50); %Basophils 0.2 % (0.0-1.0); %Eosinophils 0.1 % (0.0-10.0); %Lymphocytes 1.6 % (21.0-51.0); %Monocytes 5.6 % (0.0-10.0); %Neutrophils 91.8 % (42.0-75.0); Hemoglobin 12.4 g/dL (12.0-16.0); Mean Corpuscular Hemoglobin 29.6 pg (27.0-31.0); Mean Corpuscular Volume 92.4 fl (78.0-98.0); Mean Platelet Volume 9.2 fL (7.4-10.4); Platelet Count 325 10x3/uL (130-400); RBC Distribution Width 13.4 % (11.5-14.5); Red Blood Cell (RBC) Count 4.19 mill/uL (4.20-5.40); White Blood Cell (WBC) Count 25.6 10x3/uL (4.8-10.8)
[2022-08-19 09:50] LABS: Actual Bicarbonate (HCO3a) 17.9 mEq/L (22-28); Analyzer IN Cardio ER; Base Excess (BEa) -6.2 mEq/L (-2.0 to +3.0); CO2 Tension 31.4 mmHg (35.0-45.0); Calcium, Ionized (arterial) 1.23 mmol/L (1.12-1.30); Carboxyhemoglobin (COHb) 1.6 gm% (0.0-3.0); Hematocrit-ABG 39 % (36.0-47.0); Hemoglobin (Hb) 13.1 g/dL (12.0-16.0); O2 Tension (PaO2), arterial 81.6 mmHg (> 70.0); Potassium - ABG Lab 3.99 mmol/L (3.70-5.30); pH, Arterial 7.374 (7.35-7.45)
[2022-08-19 10:04] LABS: ALT (SGPT) 10 U/L (8-55); AST (SGOT) 13 U/L (5-34); Albumin 3.9 g/dL (3.4-4.8); Alkaline Phosphatase 98 U/L (40-110); Anion Gap 17 mmol/L (10-20); BUN (Urea Nitrogen) 13 mg/dL (9.8-20.1); Bilirubin, Total 0.8 mg/dL (0.2-1.2); Calc. Creatinine Clearance 0 mL/min (70-130); Calcium 9.7 mg/dL (7.8-10.44); Carbon Dioxide 18 mmol/L (23-31); Chloride 90 mmol/L (98-107); Estimated GFR 62; Globulin 2.7 g/dL (2.4-3.5); Glucose 147 mg/dL (83-110); Magnesium 1.6 mg/dL (1.6-2.6); Potassium 4.1 mmol/L (3.5-5.1); Protein, Total 6.6 g/dL (5.8-8.1); Sodium 121 mmol/L (136-145)
[2022-08-19 10:37] LABS: Burr Cells SLIGHT = 2-5 cells HPF (0-1); CellaVision Operator ID LAB.NR; Macrocytosis MODERATE=16-30 cells HPF (0-5); Platelet Morphology Comment Platelets Normal; Polychromasia SLIGHT = 2-3 cells HPF (0-2)
[2022-08-19] MEDS ORDERED: cefTRIAXone (ROCEPHIN) 1 GM VIAL ONE (11:47)
[2022-08-19] MEDS ORDERED: Magnesium 2 GM/50 ML BAG (IN WATER) ONE (11:47)
[2022-08-19 12:25] LABS: Bilirubin Negative (Negative); Blood, Urine Negative (Negative); Clarity Clear (Clear); Glucose, Urine (Dipstick) Normal (Negative); Ketone, Urine Negative (Negative); Leukocyte Negative Leu/uL (Negative); Nitrite Negative (Negative); Protein, Urine (Dipstick) 20 mg/dL (Neg-Trace); Specific Gravity, Urine 1.011 (1.002-1.036); Urobilinogen Normal mg/dL (Less than 2)
[2022-08-19 12:26] LABS: Lactic Acid 1.1 mmol/L (0.5-2.2)
[2022-08-19 12:35] LABS: Amphetamine Not Detected (NotDetected); Barbiturates Screen Not Detected (NotDetected); Benzodiazepine Screen Not Detected (NotDetected); Cocaine Metabolite Screen Not Detected (NotDetected); Methadone Not Detected (NotDetected); Methamphetamine Not Detected (NotDetected); Opiate Screen Not Detected (NotDetected); Oxycodone Screen Not Detected (NotDetected); Phencyclidine (PCP) Not Detected (NotDetected); THC/Cannabinoid Screen Not Detected (NotDetected); Tricyclic Screen Not Detected (NotDetected)
[2022-08-19 12:59] LABS: Creatinine, Urine 58.71 mg/dL (47-110)
[2022-08-19 13:47] LABS: Acetaminophen Less than 10.0 mcg/mL (10.0-30.0); Alcohol Less than 10 mg/dL (Less than 10); Salicylate Less than 8.0 mg/dL (15.0-30.0)
[2022-08-19] MEDS ORDERED: Albuterol 200 PUFF (6.7GM INHALER) INH PRN (14:18)
[2022-08-19 14:52] LABS: SARS-CoV-2 NAA Rapid Test Not Detected (NotDetected)
[2022-08-19 17:49] LABS: Anion Gap 12 mmol/L (10-20); BUN (Urea Nitrogen) 12 mg/dL (9.8-20.1); Calc. Creatinine Clearance 57 mL/min (70-130); Calcium 8.9 mg/dL (7.8-10.44); Carbon Dioxide 18 mmol/L (23-31); Chloride 93 mmol/L (98-107); Estimated GFR 80; Glucose 134 mg/dL (83-110)
[2022-08-19 17:53] LABS: Sodium 119 mmol/L (136-145)
[2022-08-19] MEDS ORDERED: Sodium Chloride 1 GM TAB PO SCH ×2 (18:15→21:00)
[2022-08-19] MEDS: Mometasone 200 MCG/Formoterol 5 MCG 120 PUFF INHALER INH SCH (18:45)
[2022-08-20 00:50] LABS: Anion Gap 11 mmol/L (10-20); BUN (Urea Nitrogen) 11 mg/dL (9.8-20.1); Calc. Creatinine Clearance 61 mL/min (70-130); Calcium 8.8 mg/dL (7.8-10.44); Carbon Dioxide 20 mmol/L (23-31); Chloride 95 mmol/L (98-107); Estimated GFR 86; Glucose 114 mg/dL (83-110); Potassium 4.1 mmol/L (3.5-5.1); Sodium 122 mmol/L (136-145)
[2022-08-20 05:01] LABS: #Monocytes 1.2 thou/uL (0.11-0.59); #Neutrophils 18.7 thou/uL (1.40-6.50); %Basophils 0.1 % (0.0-1.0); %Eosinophils 0.1 % (0.0-10.0); %Lymphocytes 3.3 % (21.0-51.0); %Monocytes 5.8 % (0.0-10.0); %Neutrophils 90.1 % (42.0-75.0); Hemoglobin 11.1 g/dL (12.0-16.0); Mean Corpuscular HGB CONC 32.7 g/dL (32.0-36.0); Mean Corpuscular Hemoglobin 29.9 pg (27.0-31.0); Mean Corpuscular Volume 91.4 fl (78.0-98.0); Mean Platelet Volume 9.6 fL (7.4-10.4); Platelet Count 258 10x3/uL (130-400); RBC Distribution Width 13.3 % (11.5-14.5); Red Blood Cell (RBC) Count 3.71 mill/uL (4.20-5.40); White Blood Cell (WBC) Count 20.8 10x3/uL (4.8-10.8)
[2022-08-20 05:37] LABS: Anion Gap 14 mmol/L (10-20); BUN (Urea Nitrogen) 11 mg/dL (9.8-20.1); Calc. Creatinine Clearance 65 mL/min (70-130); Calcium 8.8 mg/dL (7.8-10.44); Carbon Dioxide 17 mmol/L (23-31); Chloride 94 mmol/L (98-107); Estimated GFR 91; Glucose 94 mg/dL (83-110); Potassium 4.2 mmol/L (3.5-5.1); Sodium 121 mmol/L (136-145)
[2022-08-20] MEDS: Mometasone 200 MCG/Formoterol 5 MCG 120 PUFF INHALER INH SCH ×2 (07:35→18:45)
[2022-08-20] MEDS: MULTIVIT/IRON SULF/FOLIC ACID 1 EACH TAB PO SCH (08:57)
[2022-08-20] MEDS: Sodium Chloride 1 GM TAB PO SCH ×3 (08:57→20:32)
[2022-08-20] MEDS: Thiamine 100 MG TAB PO SCH (08:58)
[2022-08-20 14:35] LABS: Anion Gap 10 mmol/L (10-20); BUN (Urea Nitrogen) 12 mg/dL (9.8-20.1); Calc. Creatinine Clearance 58 mL/min (70-130); Calcium 8.7 mg/dL (7.8-10.44); Carbon Dioxide 22 mmol/L (23-31); Chloride 93 mmol/L (98-107); Estimated GFR 82; Glucose 145 mg/dL (83-110); Potassium 3.8 mmol/L (3.5-5.1); Sodium 121 mmol/L (136-145)
[2022-08-20 15:26] LABS: Campy jejuni + coli by PCR Negative (Negative); STEC Shiga Toxin 1+2 Negative (Negative); Salmonella spp. by PCR Negative (Negative); Shigella spp + EIEC by PCR Negative (Negative)
[2022-08-20] MEDS: Transdermal Patch Removal TOP SCH ×2 (20:32→20:36)
[2022-08-20 22:41] LABS: Anion Gap 13 mmol/L (10-20); BUN (Urea Nitrogen) 11 mg/dL (9.8-20.1); Calc. Creatinine Clearance 64 mL/min (70-130); Calcium 8.8 mg/dL (7.8-10.44); Carbon Dioxide 19 mmol/L (23-31); Chloride 94 mmol/L (98-107); Estimated GFR 91; Glucose 96 mg/dL (83-110); Potassium 3.8 mmol/L (3.5-5.1); Sodium 122 mmol/L (136-145)
[2022-08-21 04:08] LABS: #Eosinphils 0.2 thou/uL (0.0-0.7); #Neutrophils 12.6 thou/uL (1.40-6.50); %Basophils 0.1 % (0.0-1.0); %Eosinophils 1.1 % (0.0-10.0); %Lymphocytes 5.7 % (21.0-51.0); %Monocytes 6.7 % (0.0-10.0); %Neutrophils 85.7 % (42.0-75.0); Hemoglobin 9.5 g/dL (12.0-16.0); Mean Corpuscular HGB CONC 33.3 g/dL (32.0-36.0); Mean Corpuscular Hemoglobin 30.2 pg (27.0-31.0); Mean Corpuscular Volume 90.5 fl (78.0-98.0); Mean Platelet Volume 9.4 fL (7.4-10.4); Platelet Count 228 10x3/uL (130-400); RBC Distribution Width 13.3 % (11.5-14.5); Red Blood Cell (RBC) Count 3.15 mill/uL (4.20-5.40); White Blood Cell (WBC) Count 14.7 10x3/uL (4.8-10.8)
[2022-08-21 04:32] LABS: Anion Gap 11 mmol/L (10-20); BUN (Urea Nitrogen) 10 mg/dL (9.8-20.1); Calc. Creatinine Clearance 68 mL/min (70-130); Carbon Dioxide 23 mmol/L (23-31); Chloride 93 mmol/L (98-107); Estimated GFR 92; Glucose 99 mg/dL (83-110); Potassium 3.7 mmol/L (3.5-5.1); Sodium 123 mmol/L (136-145)
[2022-08-21] MEDS: Mometasone 200 MCG/Formoterol 5 MCG 120 PUFF INHALER INH SCH ×2 (07:29→19:21)
[2022-08-21] MEDS ORDERED: Non-Formulary Item 1 EACH (Baclofen [Baclofen] 5 MG Tablet) PO SCH (09:00)
[2022-08-21] MEDS: MULTIVIT/IRON SULF/FOLIC ACID 1 EACH TAB PO SCH (09:57)
[2022-08-21] MEDS: Losartan 25 MG TAB PO SCH (09:58)
[2022-08-21] MEDS: Thiamine 100 MG TAB PO SCH (09:58)
[2022-08-21] MEDS: Baclofen 10 MG TAB PO SCH (09:58)
[2022-08-21] MEDS: Lidocaine 4% Patch TD SCH (09:59)
[2022-08-21] MEDS: Amlodipine 5 MG TAB PO SCH (09:59)
[2022-08-21] MEDS: Sodium Chloride 1 GM TAB PO SCH ×3 (10:00→22:19)
[2022-08-21] MEDS: Vancomycin HCl 125 MG/5 ML (BATCHED) UDCUP PO SCH ×2 (17:36→22:35)
[2022-08-21] MEDS: Transdermal Patch Removal TOP SCH (22:17)
[2022-08-22] MEDS: Vancomycin HCl 125 MG/5 ML (BATCHED) UDCUP PO SCH ×3 (04:49→15:00)
[2022-08-22 04:57] LABS: #Eosinphils 0.2 thou/uL (0.0-0.7); #Neutrophils 7.2 thou/uL (1.40-6.50); %Basophils 0.3 % (0.0-1.0); %Eosinophils 2.3 % (0.0-10.0); %Lymphocytes 8.6 % (21.0-51.0); %Monocytes 10.5 % (0.0-10.0); Hemoglobin 9.8 g/dL (12.0-16.0); Mean Corpuscular HGB CONC 33.1 g/dL (32.0-36.0); Mean Corpuscular Hemoglobin 30.9 pg (27.0-31.0); Mean Corpuscular Volume 93.4 fl (78.0-98.0); Platelet Count 238 10x3/uL (130-400); RBC Distribution Width 13.5 % (11.5-14.5); Red Blood Cell (RBC) Count 3.17 mill/uL (4.20-5.40); White Blood Cell (WBC) Count 9.2 10x3/uL (4.8-10.8)
[2022-08-22 05:21] LABS: Anion Gap 14 mmol/L (10-20); BUN (Urea Nitrogen) 6 mg/dL (9.8-20.1); Calc. Creatinine Clearance 85 mL/min (70-130); Calcium 9.1 mg/dL (7.8-10.44); Carbon Dioxide 22 mmol/L (23-31); Chloride 97 mmol/L (98-107); Estimated GFR 95; Glucose 102 mg/dL (83-110); Potassium 3.5 mmol/L (3.5-5.1); Sodium 129 mmol/L (136-145)
[2022-08-22] MEDS: Mometasone 200 MCG/Formoterol 5 MCG 120 PUFF INHALER INH SCH (07:39)
[2022-08-22] MEDS: Amlodipine 5 MG TAB PO SCH (09:32)
[2022-08-22] MEDS: Sodium Chloride 1 GM TAB PO SCH ×2 (09:33→14:57)
[2022-08-22] MEDS: Thiamine 100 MG TAB PO SCH (09:33)
[2022-08-22] MEDS: Lidocaine 4% Patch TD SCH (09:33)
[2022-08-22] MEDS: MULTIVIT/IRON SULF/FOLIC ACID 1 EACH TAB PO SCH (09:33)
[2022-08-22] MEDS: Losartan 25 MG TAB PO SCH (09:33)
[2022-08-22] MEDS: Baclofen 10 MG TAB PO SCH (09:47)
[2022-08-22 10:23] VITALS: BMI 20.6
[2022-08-22 15:01] VITALS: BP 169/73; TEMP 98.1
== END 2022-08-22 16:31 | disposition home or self-care (01) | DRG 871 ==
LOC: ERS 09:11 → 2NO 14:19
PROVIDERS: ADMIT Student in an Organized Health Care Education/Training Program; ATTEND Student in an Organized Health Care Education/Training Program
PROC: 4A033R1 Measurement of Arterial Saturation, Peripheral, Percutaneous Approach (ICD-10-PCS; principal; 2022-08-19)
PROC: 3E03329 Introduction of Other Anti-infective into Peripheral Vein, Percutaneous Approach (ICD-10-PCS; 2022-08-19)
DX: A41.89 Other specified sepsis (principal); G93.41 Metabolic encephalopathy; E22.2 Syndrome of inappropriate secretion of antidiuretic hormone; R64 Cachexia; A04.72 Enterocolitis due to Clostridium difficile, not specified as recurrent; I10 Essential (primary) hypertension; J44.9 Chronic obstructive pulmonary disease, unspecified; F17.210 Nicotine dependence, cigarettes, uncomplicated; Z20.822 Contact with and (suspected) exposure to COVID-19; Z88.2 Allergy status to sulfonamides; Z79.899 Other long term (current) drug therapy; Z79.51 Long term (current) use of inhaled steroids; Z98.890 Other specified postprocedural states; Z68.20 Body mass index [BMI] 20.0-20.9, adult; Z90.49 Acquired absence of other specified parts of digestive tract
CPT/HCPCS: 36415; 70450; 71045; 80048; 80053; 80143; 80179; 80306; 80307; 81003; 82140; 82550; 82570; 82805; 83605; 83735; 83880; 83930; 83935; 84145; 84300; 84484; 85025; 87040; 87086; 87324; 87449; 87493; 87505; 87804; 87811; 93005; 96361; 96365; 96367; J0696; J1650; J3475; U0002

== ENCOUNTER 2024-01-16 09:20 | Emergency (ER) | payer MEDICARE ==
[2024-01-16] MEDS ORDERED: Albuterol 2.5 MG (3 mL) NEB ONE (09:30)
[2024-01-16 09:58] LABS: Actual Bicarbonate (HCO3a) 24.7 mEq/L (22-28); Analyzer IN Cardio ER; Base Excess (BEa) -0.2 mEq/L (-2.0 to +3.0); CO2 Tension 41.1 mmHg (35.0-45.0); Calcium, Ionized (arterial) 1.22 mmol/L (1.12-1.30); Carboxyhemoglobin (COHb) 0.7 gm% (0.0-3.0); Hematocrit-ABG 40 % (36.0-47.0); Hemoglobin (Hb) 13.5 g/dL (12.0-16.0); Potassium - ABG Lab 3.18 mmol/L (3.70-5.30); pH, Arterial 7.396 (7.35-7.45)
[2024-01-16 10:03] LABS: O2 Tension (PaO2), arterial 57.5 mmHg (> 70.0); Puncture Site Left Brachial artery
[2024-01-16 10:04] LABS: ALV-art Gradient 176.325 mmHg (0-20)
[2024-01-16 10:32] LABS: ALT (SGPT) 7 U/L (8-55); AST (SGOT) 14 U/L (5-34); Albumin 2.9 g/dL (3.4-4.8); Alkaline Phosphatase 58 U/L (40-110); Anion Gap 14 mmol/L (10-20); BUN (Urea Nitrogen) 12 mg/dL (9.8-20.1); Bilirubin, Total 0.5 mg/dL (0.2-1.2); Calc. Creatinine Clearance 0 mL/min (70-130); Calcium 9.3 mg/dL (7.8-10.44); Carbon Dioxide 23 mmol/L (23-31); Chloride 104 mmol/L (98-107); Estimated GFR 91; Globulin 2.9 g/dL (2.4-3.5); Glucose 188 mg/dL (83-110); Potassium 3.5 mmol/L (3.5-5.1); Protein, Total 5.8 g/dL (5.8-8.1); Sodium 137 mmol/L (136-145)
[2024-01-16] MEDS ORDERED: Ipratropium Bromide 2.5 ml Neb ONE (10:33)
[2024-01-16 10:43] LABS: #Basophils 0.04 10x3/uL (0.0-0.2); %Basophils 0.4 % (0.0-1.0); %Eosinophils 1.7 % (0.0-10.0); %Lymphocytes 18.4 % (21.0-51.0); %Monocytes 10.9 % (0.0-10.0); %Neutrophils 67.8 % (42.0-75.0); Hematocrit 40.1 % (36.0-47.0); Hemoglobin 12.7 g/dL (12.0-16.0); Mean Corpuscular HGB CONC 31.7 g/dL (32.0-36.0); Mean Corpuscular Hemoglobin 29.5 pg (27.0-31.0); Mean Corpuscular Volume 93.3 fL (78.0-98.0); Platelet Count 178 10x3/uL (130-400)
[2024-01-16 10:52] LABS: Troponin I 0.069 ng/mL (< 0.028)
== END 2024-01-16 12:39 | disposition home or self-care (01) ==
LOC: ERS 09:20
DX: J44.1 Chronic obstructive pulmonary disease with (acute) exacerbation (principal); R79.89 Other specified abnormal findings of blood chemistry; F17.210 Nicotine dependence, cigarettes, uncomplicated; I10 Essential (primary) hypertension
CPT/HCPCS: 36600; 71045; 80053; 82805; 83880; 84484; 85025; 93005; 94644; 94660; 99285; J7644; 36415; J7611

== ENCOUNTER 2024-01-19 05:26 | Inpatient (IN) | payer MEDICARE ==
[2024-01-19 06:14] LABS: #Basophils Less than 0.03 10x3/uL (0.0-0.2); #Eosinophils Less than 0.03 10x3/uL (0.0-0.7); %Basophils 0.2 % (0.0-1.0); %Eosinophils 0.1 % (0.0-10.0); %Lymphocytes 18.8 % (21.0-51.0); %Monocytes 10.5 % (0.0-10.0); %Neutrophils 69.9 % (42.0-75.0); Hematocrit 43.4 % (36.0-47.0); Hemoglobin 13.4 g/dL (12.0-16.0); Mean Corpuscular HGB CONC 30.9 g/dL (32.0-36.0); Mean Corpuscular Hemoglobin 29.3 pg (27.0-31.0); Mean Corpuscular Volume 94.8 fL (78.0-98.0); Mean Platelet Volume 11.1 fL (7.4-10.4); Platelet Count 240 10x3/uL (130-400); Red Blood Cell (RBC) Count 4.58 mill/uL (4.20-5.40)
[2024-01-19] MEDS ORDERED: cefTRIAXone (ROCEPHIN) 1 GM VIAL ONE (06:18)
[2024-01-19] MEDS ORDERED: Sodium Chloride 0.9% 100 ML ONE (06:18)
[2024-01-19 06:28] LABS: Actual Bicarbonate (HCO3v) 32.6 mEq/L (22-28); Analyzer IN Cardio ER; Base Excess 4.5 mEq/L (-2.0 to +3.0); Calcium, Ionized (venous) 1.24 mmol/L (1.16-1.32); Chloride (VBG) 99 mmol/L (98-106); Hematocrit-VBG 41 % (36.0-47.0); Hemoglobin (Hb) 14.1 g/dL (11.7-16.1); Potassium (VBG) 3.48 mmol/L (3.70-5.30); Sodium 140 mmol/L (133-146); pH (venous) 7.322 (7.32-7.43)
[2024-01-19 06:35] LABS: ALT (SGPT) 7 U/L (8-55); AST (SGOT) 13 U/L (5-34); Alkaline Phosphatase 51 U/L (40-110); Anion Gap 11 mmol/L (10-20); BUN (Urea Nitrogen) 21 mg/dL (9.8-20.1); Bilirubin, Total 0.4 mg/dL (0.2-1.2); Calc. Creatinine Clearance 0 mL/min (70-130); Calcium 9.3 mg/dL (7.8-10.44); Carbon Dioxide 29 mmol/L (23-31); Chloride 102 mmol/L (98-107); Estimated GFR 84; Globulin 2.6 g/dL (2.4-3.5); Glucose 190 mg/dL (83-110); Potassium 3.7 mmol/L (3.5-5.1); Protein, Total 5.6 g/dL (5.8-8.1); Sodium 138 mmol/L (136-145)
[2024-01-19] MEDS ORDERED: Albuterol 2.5 MG (0.5 mL) NEB ONE (06:39)
[2024-01-19 06:41] LABS: Troponin I 0.504 ng/mL (< 0.028)
[2024-01-19 06:51] LABS: Magnesium 1.6 mg/dL (1.6-2.6)
[2024-01-19] MEDS ORDERED: Aspirin Chewable 81 MG TAB ONE (07:13)
[2024-01-19] MEDS ORDERED: Azithromycin 500 MG VIAL ONE (07:13)
[2024-01-19] MEDS ORDERED: Nitroglycerin 2% Ointment 1 INCH/1 GM Packet ONE (07:28)
[2024-01-19] MEDS ORDERED: Enoxaparin 60 MG (0.6 mL) SYRINGE ONE (07:29)
[2024-01-19] MEDS ORDERED: Acetaminophen 650 MG Suppository PR PRN (07:45)
[2024-01-19] MEDS ORDERED: Ondansetron PF 4 MG/2 ML Vial IVP PRN (07:45)
[2024-01-19] MEDS ORDERED: Nitroglycerin 0.4 MG TAB (25 Tab Bottle) SL PRN (07:57)
[2024-01-19] MEDS ORDERED: Albuterol 200 PUFF (6.7GM INHALER) INH PRN (08:08)
[2024-01-19] MEDS ORDERED: Iopamidol-370 76% 500 ML MDV (1 ML CHARGE) ONE (08:54)
[2024-01-19] MEDS ORDERED: Non-Formulary Item 1 EACH (Omeprazole [Omeprazole] 20 MG Tablet.Dr) PO SCH (09:00)
[2024-01-19] MEDS ORDERED: Non-Formulary Item 1 EACH (Budesonide-Formoterol [Symbicort 160-4.5] 160 MG/4.5 MG Aer) INH SCH (09:00)
[2024-01-19] MEDS ORDERED: Non-Formulary Item 1 EACH (Lisinopril [Lisinopril] 40 MG Tablet) PO SCH (09:00)
[2024-01-19] MEDS: Enoxaparin 60 MG (0.6 mL) SYRINGE SC SCH (10:07)
[2024-01-19] MEDS: Aspirin 81 mg Enteric Coated Tablet PO SCH (10:08)
[2024-01-19] MEDS: Nitroglycerin 2% Ointment 1 INCH/1 GM Packet TOP SCH (10:08)
[2024-01-19] MEDS: Amlodipine 5 MG TAB PO SCH (10:09)
[2024-01-19] MEDS: Nicotine 14 MG PATCH TD SCH (10:09)
[2024-01-19] MEDS: Atorvastatin Calcium 40 MG TAB PO SCH (10:10)
[2024-01-19] MEDS: Ibuprofen 200 MG TAB PO SCH (10:10)
[2024-01-19] MEDS: Lisinopril 20 MG TAB PO SCH (10:10)
[2024-01-19] MEDS: Pantoprazole DR 40 MG TAB PO SCH (10:11)
[2024-01-19] MEDS: Sodium Chloride 1 GM TAB PO SCH (10:11)
[2024-01-19] MEDS: methylPREDNISolone Sod Succ 40 MG VIAL IVP SCH (10:11)
[2024-01-19] MEDS: Ipratropium/Albuterol 3 ML NEB NEB SCH (10:38)
[2024-01-19 10:44] LABS: Critical Call Chem Troponin I RESULT DECREASING; Troponin I 0.488 ng/mL (< 0.028)
[2024-01-19 14:00] LABS: Critical Call Chem Troponin I RESULT DECREASING; Troponin I 0.409 ng/mL (< 0.028)
[2024-01-19] MEDS ORDERED: Mometasone 200 MCG/Formoterol 5 MCG 120 PUFF INHALER INH SCH (18:30)
[2024-01-19] MEDS: Budesonide 0.5 MG/2 ML NEB INH SCH (19:11)
[2024-01-20 04:06] LABS: #Basophils Less than 0.03 10x3/uL (0.0-0.2); #Eosinophils Less than 0.03 10x3/uL (0.0-0.7); %Basophils 0.1 % (0.0-1.0); %Lymphocytes 12.8 % (21.0-51.0); %Monocytes 11.9 % (0.0-10.0); %Neutrophils 74.6 % (42.0-75.0); Hematocrit 38.9 % (36.0-47.0); Hemoglobin 12.1 g/dL (12.0-16.0); Mean Corpuscular HGB CONC 31.1 g/dL (32.0-36.0); Mean Corpuscular Hemoglobin 29.7 pg (27.0-31.0); Mean Corpuscular Volume 95.3 fL (78.0-98.0); Mean Platelet Volume 11.2 fL (7.4-10.4); Platelet Count 190 10x3/uL (130-400); RBC Distribution Width 14.1 % (11.5-14.5); Red Blood Cell (RBC) Count 4.08 mill/uL (4.20-5.40)
[2024-01-20 04:38] LABS: ALT (SGPT) 8 U/L (8-55); AST (SGOT) 11 U/L (5-34); Albumin 2.9 g/dL (3.4-4.8); Alkaline Phosphatase 44 U/L (40-110); Anion Gap 13 mmol/L (10-20); BUN (Urea Nitrogen) 18 mg/dL (9.8-20.1); Bilirubin, Total 0.5 mg/dL (0.2-1.2); Calc. Creatinine Clearance 47 mL/min (70-130); Calcium 9.3 mg/dL (7.8-10.44); Carbon Dioxide 28 mmol/L (23-31); Chloride 103 mmol/L (98-107); Estimated GFR 92; Globulin 2.5 g/dL (2.4-3.5); Glucose 112 mg/dL (83-110); Potassium 3.5 mmol/L (3.5-5.1); Protein, Total 5.4 g/dL (5.8-8.1); Sodium 140 mmol/L (136-145)
[2024-01-20] MEDS: Enoxaparin 30 MG (0.3 mL) SYRINGE SC SCH (07:54)
[2024-01-20] MEDS: Azithromycin 250 MG TAB PO SCH (07:58)
[2024-01-20] MEDS: Potassium Chloride 20 MEQ TAB PO SCH (08:26)
[2024-01-20] MEDS ORDERED: Enoxaparin 40 MG (0.4 mL) SYRINGE SC SCH (09:00)
[2024-01-20 11:04] VITALS: BMI 17.9
[2024-01-20] MEDS: Ipratropium/Albuterol 3 ML NEB NEB SCH (13:35)
[2024-01-20] MEDS: Empagliflozin 10 MG TAB PO SCH (18:27)
[2024-01-20] MEDS: Enoxaparin 60 MG (0.6 mL) SYRINGE SC SCH (20:21)
[2024-01-20] MEDS ORDERED: Enoxaparin 30 MG (0.3 mL) SYRINGE SC SCH (21:00)
[2024-01-21 04:46] LABS: #Basophils Less than 0.03 10x3/uL (0.0-0.2); #Eosinophils Less than 0.03 10x3/uL (0.0-0.7); %Eosinophils 0.1 % (0.0-10.0); %Lymphocytes 14.1 % (21.0-51.0); %Monocytes 11.3 % (0.0-10.0); %Neutrophils 73.9 % (42.0-75.0); Hematocrit 36.8 % (36.0-47.0); Hemoglobin 11.4 g/dL (12.0-16.0); Mean Corpuscular Hemoglobin 29.8 pg (27.0-31.0); Mean Corpuscular Volume 96.3 fL (78.0-98.0); Mean Platelet Volume 11.4 fL (7.4-10.4); Platelet Count 175 10x3/uL (130-400); RBC Distribution Width 14.1 % (11.5-14.5); Red Blood Cell (RBC) Count 3.82 mill/uL (4.20-5.40)
[2024-01-21 04:54] LABS: ALT (SGPT) 11 U/L (8-55); AST (SGOT) 13 U/L (5-34); Albumin 2.8 g/dL (3.4-4.8); Alkaline Phosphatase 38 U/L (40-110); Anion Gap 9 mmol/L (10-20); BUN (Urea Nitrogen) 21 mg/dL (9.8-20.1); Bilirubin, Total 0.4 mg/dL (0.2-1.2); Calc. Creatinine Clearance 56 mL/min (70-130); Calcium 9.3 mg/dL (7.8-10.44); Carbon Dioxide 30 mmol/L (23-31); Chloride 103 mmol/L (98-107); Estimated GFR 90; Globulin 2.2 g/dL (2.4-3.5); Glucose 102 mg/dL (83-110); Magnesium 1.7 mg/dL (1.6-2.6); Potassium 4.1 mmol/L (3.5-5.1); Sodium 138 mmol/L (136-145)
[2024-01-21] MEDS: Empagliflozin 10 MG TAB PO SCH (08:59)
[2024-01-21] MEDS: Furosemide 20 MG (2 mL) VIAL SLOW IVP SCH (08:59)
[2024-01-21] MEDS: Lisinopril 5 MG TAB PO SCH (09:00)
[2024-01-21] MEDS: Ipratropium/Albuterol 3 ML NEB NEB PRN (23:10)
[2024-01-22 04:40] LABS: #Basophils Less than 0.03 10x3/uL (0.0-0.2); %Basophils 0.1 % (0.0-1.0); %Eosinophils 1.2 % (0.0-10.0); %Lymphocytes 15.9 % (21.0-51.0); %Monocytes 12.6 % (0.0-10.0); %Neutrophils 69.8 % (42.0-75.0); Hematocrit 37.6 % (36.0-47.0); Hemoglobin 11.8 g/dL (12.0-16.0); Mean Corpuscular HGB CONC 31.4 g/dL (32.0-36.0); Mean Corpuscular Hemoglobin 29.9 pg (27.0-31.0); Mean Corpuscular Volume 95.2 fL (78.0-98.0); Mean Platelet Volume 11.5 fL (7.4-10.4); Platelet Count 165 10x3/uL (130-400); Red Blood Cell (RBC) Count 3.95 mill/uL (4.20-5.40)
[2024-01-22 04:53] LABS: ALT (SGPT) 11 U/L (8-55); AST (SGOT) 12 U/L (5-34); Albumin 2.8 g/dL (3.4-4.8); Alkaline Phosphatase 38 U/L (40-110); Anion Gap 11 mmol/L (10-20); BUN (Urea Nitrogen) 19 mg/dL (9.8-20.1); Bilirubin, Total 0.4 mg/dL (0.2-1.2); Calc. Creatinine Clearance 67 mL/min (70-130); Carbon Dioxide 30 mmol/L (23-31); Chloride 99 mmol/L (98-107); Estimated GFR 94; Globulin 2.1 g/dL (2.4-3.5); Glucose 93 mg/dL (83-110); Magnesium 1.6 mg/dL (1.6-2.6); Potassium 3.7 mmol/L (3.5-5.1); Protein, Total 4.9 g/dL (5.8-8.1); Sodium 136 mmol/L (136-145)
[2024-01-22] MEDS ORDERED: Albuterol 200 PUFF (6.7GM INHALER) INH PRN (08:41)
[2024-01-22] MEDS: Spironolactone 25 MG TAB PO SCH (11:23)
[2024-01-22] MEDS: Calcium Carbonate 500 MG ChewTAB PO PRN (14:48)
[2024-01-22] MEDS: Apixaban 5 MG TAB PO SCH (20:59)
[2024-01-22] MEDS: Acetaminophen 325 MG TAB PO PRN (23:49)
[2024-01-23] MEDS: diphenhydrAMINE 50 MG/ML VIAL IVP SCH (04:14)
[2024-01-23] MEDS: Metoclopramide HCl 10 MG (2 mL) VIAL IVP SCH (04:16)
[2024-01-23 04:42] LABS: #Basophils Less than 0.03 10x3/uL (0.0-0.2); %Basophils 0.1 % (0.0-1.0); %Lymphocytes 12.7 % (21.0-51.0); %Monocytes 10.2 % (0.0-10.0); %Neutrophils 75.4 % (42.0-75.0); Hematocrit 39.9 % (36.0-47.0); Hemoglobin 12.7 g/dL (12.0-16.0); Mean Corpuscular HGB CONC 31.8 g/dL (32.0-36.0); Mean Corpuscular Hemoglobin 29.4 pg (27.0-31.0); Mean Corpuscular Volume 92.4 fL (78.0-98.0); Platelet Count 171 10x3/uL (130-400); Red Blood Cell (RBC) Count 4.32 mill/uL (4.20-5.40)
[2024-01-23 05:00] LABS: ALT (SGPT) 12 U/L (8-55); AST (SGOT) 12 U/L (5-34); Alkaline Phosphatase 41 U/L (40-110); Anion Gap 11 mmol/L (10-20); BUN (Urea Nitrogen) 24 mg/dL (9.8-20.1); Bilirubin, Total 0.5 mg/dL (0.2-1.2); Calc. Creatinine Clearance 47 mL/min (70-130); Calcium 9.1 mg/dL (7.8-10.44); Carbon Dioxide 32 mmol/L (23-31); Chloride 94 mmol/L (98-107); Estimated GFR 85; Globulin 2.3 g/dL (2.4-3.5); Glucose 95 mg/dL (83-110); Potassium 3.8 mmol/L (3.5-5.1); Protein, Total 5.3 g/dL (5.8-8.1); Sodium 133 mmol/L (136-145)
[2024-01-23] MEDS: predniSONE 20 MG TAB PO SCH (09:00)
[2024-01-23] MEDS: Potassium Chloride 20 MEQ TAB PO SCH (09:02)
[2024-01-23] MEDS: Spironolactone 25 MG TAB PO SCH (09:06)
[2024-01-23] MEDS: Lactated Ringer's 500 ML IV SCH (09:24)
[2024-01-24 04:03] LABS: #Basophils Less than 0.03 10x3/uL (0.0-0.2); #Eosinophils Less than 0.03 10x3/uL (0.0-0.7); %Basophils 0.1 % (0.0-1.0); %Eosinophils 0.2 % (0.0-10.0); %Lymphocytes 10.1 % (21.0-51.0); %Monocytes 8.6 % (0.0-10.0); %Neutrophils 80.4 % (42.0-75.0); Hematocrit 38.3 % (36.0-47.0); Hemoglobin 12.1 g/dL (12.0-16.0); Mean Corpuscular HGB CONC 31.6 g/dL (32.0-36.0); Mean Corpuscular Hemoglobin 29.1 pg (27.0-31.0); Mean Corpuscular Volume 92.1 fL (78.0-98.0); Mean Platelet Volume 12.3 fL (7.4-10.4); Platelet Count 163 10x3/uL (130-400); RBC Distribution Width 14.2 % (11.5-14.5); Red Blood Cell (RBC) Count 4.16 mill/uL (4.20-5.40)
[2024-01-24 04:24] LABS: ALT (SGPT) 15 U/L (8-55); AST (SGOT) 15 U/L (5-34); Albumin 2.9 g/dL (3.4-4.8); Alkaline Phosphatase 40 U/L (40-110); Anion Gap 11 mmol/L (10-20); BUN (Urea Nitrogen) 23 mg/dL (9.8-20.1); Bilirubin, Total 0.6 mg/dL (0.2-1.2); Calc. Creatinine Clearance 54 mL/min (70-130); Carbon Dioxide 28 mmol/L (23-31); Chloride 98 mmol/L (98-107); Estimated GFR 92; Globulin 2.2 g/dL (2.4-3.5); Glucose 94 mg/dL (83-110); Potassium 4.3 mmol/L (3.5-5.1); Protein, Total 5.1 g/dL (5.8-8.1); Sodium 133 mmol/L (136-145)
[2024-01-24 11:05] VITALS: BMI 16.2
[2024-01-24] MEDS: Lactated Ringer's 500 ML IV SCH (12:12)
[2024-01-24] MEDS: Ondansetron ODT 4 MG TAB PO PRN (19:25)
[2024-01-25 04:24] LABS: #Basophils Less than 0.03 10x3/uL (0.0-0.2); %Basophils 0.1 % (0.0-1.0); %Eosinophils 0.3 % (0.0-10.0); %Lymphocytes 7.9 % (21.0-51.0); %Monocytes 9.8 % (0.0-10.0); %Neutrophils 81.4 % (42.0-75.0); Hematocrit 35.1 % (36.0-47.0); Hemoglobin 11.2 g/dL (12.0-16.0); Mean Corpuscular HGB CONC 31.9 g/dL (32.0-36.0); Mean Corpuscular Hemoglobin 29.3 pg (27.0-31.0); Mean Corpuscular Volume 91.9 fL (78.0-98.0); Mean Platelet Volume 12.2 fL (7.4-10.4); Platelet Count 158 10x3/uL (130-400); RBC Distribution Width 14.2 % (11.5-14.5); Red Blood Cell (RBC) Count 3.82 mill/uL (4.20-5.40)
[2024-01-25 05:05] LABS: ALT (SGPT) 21 U/L (8-55); AST (SGOT) 21 U/L (5-34); Albumin 2.7 g/dL (3.4-4.8); Alkaline Phosphatase 35 U/L (40-110); Anion Gap 9 mmol/L (10-20); BUN (Urea Nitrogen) 26 mg/dL (9.8-20.1); Bilirubin, Total 0.4 mg/dL (0.2-1.2); Calc. Creatinine Clearance 49 mL/min (70-130); Calcium 8.9 mg/dL (7.8-10.44); Carbon Dioxide 29 mmol/L (23-31); Chloride 95 mmol/L (98-107); Estimated GFR 88; Globulin 2.1 g/dL (2.4-3.5); Glucose 107 mg/dL (83-110); Potassium 4.3 mmol/L (3.5-5.1); Protein, Total 4.8 g/dL (5.8-8.1); Sodium 129 mmol/L (136-145)
[2024-01-25] MEDS: predniSONE 20 MG TAB PO SCH (09:28)
[2024-01-25] MEDS: Furosemide 20 MG TAB PO SCH (11:02)
[2024-01-25] MEDS: Famotidine 20 MG TAB PO SCH ×2 (11:59→21:43)
[2024-01-26 04:57] LABS: #Basophils Less than 0.03 10x3/uL (0.0-0.2); %Basophils 0.1 % (0.0-1.0); %Eosinophils 0.6 % (0.0-10.0); %Lymphocytes 11.2 % (21.0-51.0); %Monocytes 12.7 % (0.0-10.0); %Neutrophils 74.7 % (42.0-75.0); Hematocrit 32.8 % (36.0-47.0); Hemoglobin 10.6 g/dL (12.0-16.0); Mean Corpuscular HGB CONC 32.3 g/dL (32.0-36.0); Mean Corpuscular Hemoglobin 29.9 pg (27.0-31.0); Mean Corpuscular Volume 92.4 fL (78.0-98.0); Mean Platelet Volume 12.1 fL (7.4-10.4); Platelet Count 152 10x3/uL (130-400); RBC Distribution Width 14.3 % (11.5-14.5); Red Blood Cell (RBC) Count 3.55 mill/uL (4.20-5.40)
[2024-01-26 05:09] LABS: Anion Gap 13 mmol/L (10-20); BUN (Urea Nitrogen) 25 mg/dL (9.8-20.1); Calc. Creatinine Clearance 49 mL/min (70-130); Carbon Dioxide 24 mmol/L (23-31); Chloride 96 mmol/L (98-107); Potassium 4.9 mmol/L (3.5-5.1); Sodium 128 mmol/L (136-145)
[2024-01-26 05:10] LABS: ALT (SGPT) 19 U/L (8-55); AST (SGOT) 17 U/L (5-34); Albumin 2.6 g/dL (3.4-4.8); Alkaline Phosphatase 34 U/L (40-110); Bilirubin, Total 0.3 mg/dL (0.2-1.2); Calcium 8.5 mg/dL (7.8-10.44); Estimated GFR 88; Globulin 2.4 g/dL (2.4-3.5); Glucose 87 mg/dL (83-110)
[2024-01-26] MEDS: Cyclobenzaprine 10 MG TAB PO PRN (06:02)
[2024-01-26] MEDS: Furosemide 20 MG TAB PO SCH (09:11)
[2024-01-26 13:19] LABS: Anion Gap 11 mmol/L (10-20); BUN (Urea Nitrogen) 25 mg/dL (9.8-20.1); Calc. Creatinine Clearance 44 mL/min (70-130); Calcium 8.9 mg/dL (7.8-10.44); Carbon Dioxide 30 mmol/L (23-31); Chloride 94 mmol/L (98-107); Estimated GFR 79; Glucose 104 mg/dL (83-110); Potassium 3.9 mmol/L (3.5-5.1); Sodium 131 mmol/L (136-145)
[2024-01-26 13:47] VITALS: BP 116/56; TEMP 98.1
== END 2024-01-26 15:26 | disposition home health service (06) | DRG 280 ==
LOC: ERS 05:26 → IMCU/EMU 09:01 → 2NO 01-20 17:59
PROVIDERS: ADMIT Family Medicine; ATTEND Family Medicine
DX: I11.0 Hypertensive heart disease with heart failure (principal); I50.23 Acute on chronic systolic (congestive) heart failure; I21.A1 Myocardial infarction type 2; J96.01 Acute respiratory failure with hypoxia; J44.1 Chronic obstructive pulmonary disease with (acute) exacerbation; E87.4 Mixed disorder of acid-base balance; E87.1 Hypo-osmolality and hyponatremia; I95.9 Hypotension, unspecified; R53.81 Other malaise; F17.210 Nicotine dependence, cigarettes, uncomplicated; Z79.82 Long term (current) use of aspirin; Z79.899 Other long term (current) drug therapy; Z71.6 Tobacco abuse counseling; Z88.2 Allergy status to sulfonamides; Z90.49 Acquired absence of other specified parts of digestive tract; I73.9 Peripheral vascular disease, unspecified
CPT/HCPCS: 36415; 71045; 71275; 80053; 82306; 82805; 83735; 83880; 84134; 84484; 85025; 86141; 87428; 87633; 93005; 93306; 94760; 96372; 96374; 96375; J0456; J0696; J1200; J1650; J1940; J2765; J2919; J7120; J7512; J7611; J7620; J7626; Q0162; Q9967

== ENCOUNTER 2024-02-07 09:35 | Inpatient (IN) | payer MEDICARE ==
[2024-02-07] MEDS ORDERED: Ipratropium/Albuterol 3 ML NEB ONE (09:52)
[2024-02-07 10:12] LABS: Actual Bicarbonate (HCO3a) 23.1 mEq/L (22-28); Analyzer IN Cardio ER; Base Excess (BEa) -0.8 mEq/L (-2.0 to +3.0); Calcium, Ionized (arterial) 1.25 mmol/L (1.12-1.30); Carboxyhemoglobin (COHb) 0.4 gm% (0.0-3.0); Hematocrit-ABG 39 % (36.0-47.0); Hemoglobin (Hb) 13.4 g/dL (12.0-16.0); O2 Tension (PaO2), arterial 318.7 mmHg (> 70.0); Potassium - ABG Lab 3.32 mmol/L (3.70-5.30); pH, Arterial 7.425 (7.35-7.45)
[2024-02-07 10:22] LABS: #Basophils Less than 0.03 10x3/uL (0.0-0.2); %Basophils 0.2 % (0.0-1.0); %Eosinophils 0.7 % (0.0-10.0); %Lymphocytes 18.8 % (21.0-51.0); %Monocytes 7.8 % (0.0-10.0); %Neutrophils 72.1 % (42.0-75.0); Hematocrit 40.4 % (36.0-47.0); Hemoglobin 12.9 g/dL (12.0-16.0); Mean Corpuscular HGB CONC 31.9 g/dL (32.0-36.0); Mean Corpuscular Hemoglobin 30.1 pg (27.0-31.0); Mean Corpuscular Volume 94.2 fL (78.0-98.0); Mean Platelet Volume 11.3 fL (7.4-10.4); Platelet Count 119 10x3/uL (130-400); RBC Distribution Width 14.6 % (11.5-14.5); Red Blood Cell (RBC) Count 4.29 mill/uL (4.20-5.40)
[2024-02-07 10:24] LABS: Puncture Site Right Radial artery
[2024-02-07 10:38] LABS: Troponin I 0.055 ng/mL (< 0.028)
[2024-02-07 12:10] LABS: ALT (SGPT) 11 U/L (8-55); AST (SGOT) 11 U/L (5-34); Alkaline Phosphatase 63 U/L (40-110); Anion Gap 15 mmol/L (10-20); BUN (Urea Nitrogen) 18 mg/dL (9.8-20.1); Bilirubin, Total 0.6 mg/dL (0.2-1.2); Calc. Creatinine Clearance 0 mL/min (70-130); Calcium 8.6 mg/dL (7.8-10.44); Carbon Dioxide 20 mmol/L (23-31); Chloride 101 mmol/L (98-107); Estimated GFR 90; Globulin 2.6 g/dL (2.4-3.5); Glucose 194 mg/dL (83-110); Potassium 3.1 mmol/L (3.5-5.1); Protein, Total 5.6 g/dL (5.8-8.1); Sodium 133 mmol/L (136-145)
[2024-02-07] MEDS ORDERED: Potassium Chloride 20 MEQ TAB ONE (14:47)
[2024-02-07 17:17] VITALS: BMI 37.1
[2024-02-07] MEDS: Azithromycin 250 MG TAB PO SCH (17:19)
[2024-02-07] MEDS: Nicotine 14 MG PATCH TD SCH (17:19)
[2024-02-07 17:41] LABS: Troponin I 0.051 ng/mL (< 0.028)
[2024-02-07 18:30] LABS: Troponin I 0.045 ng/mL (< 0.028)
[2024-02-07] MEDS: Mometasone 200 MCG/Formoterol 5 MCG 120 PUFF INHALER INH SCH (18:30)
[2024-02-07] MEDS: Ipratropium/Albuterol 3 ML NEB NEB SCH (18:54)
[2024-02-07] MEDS ORDERED: Ipratropium Bromide 2.5 ml Neb NEB SCH (19:00)
[2024-02-07] MEDS: Sodium Chloride 1 GM TAB PO SCH (20:47)
[2024-02-07] MEDS: Apixaban 5 MG TAB PO SCH (20:47)
[2024-02-08] MEDS: Ipratropium/Albuterol 3 ML NEB NEB PRN (05:18)
[2024-02-08 05:19] LABS: Anion Gap 11 mmol/L (10-20); BUN (Urea Nitrogen) 20 mg/dL (9.8-20.1); Calc. Creatinine Clearance 126 mL/min (70-130); Calcium 8.4 mg/dL (7.8-10.44); Carbon Dioxide 22 mmol/L (23-31); Chloride 103 mmol/L (98-107); Estimated GFR 93; Glucose 115 mg/dL (83-110); Potassium 4.3 mmol/L (3.5-5.1); Sodium 132 mmol/L (136-145)
[2024-02-08 05:35] LABS: #Basophils Less than 0.03 10x3/uL (0.0-0.2); #Eosinophils Less than 0.03 10x3/uL (0.0-0.7); %Lymphocytes 12.7 % (21.0-51.0); %Monocytes 6.9 % (0.0-10.0); %Neutrophils 79.9 % (42.0-75.0); Hematocrit 34.1 % (36.0-47.0); Hemoglobin 11.3 g/dL (12.0-16.0); Mean Corpuscular HGB CONC 33.1 g/dL (32.0-36.0); Mean Corpuscular Hemoglobin 30.4 pg (27.0-31.0); Mean Corpuscular Volume 91.7 fL (78.0-98.0); Mean Platelet Volume 11.1 fL (7.4-10.4); Platelet Count 113 10x3/uL (130-400); RBC Distribution Width 14.9 % (11.5-14.5); Red Blood Cell (RBC) Count 3.72 mill/uL (4.20-5.40)
[2024-02-08] MEDS: predniSONE 20 MG TAB PO SCH (09:47)
[2024-02-08] MEDS: Aspirin 81 mg Enteric Coated Tablet PO SCH (09:47)
[2024-02-08] MEDS: Spironolactone 25 MG TAB PO SCH (09:47)
[2024-02-08] MEDS: Azithromycin 250 MG TAB PO SCH (09:48)
[2024-02-08] MEDS: Atorvastatin Calcium 40 MG TAB PO SCH (09:48)
[2024-02-08] MEDS: Empagliflozin 10 MG TAB PO SCH (09:48)
[2024-02-08] MEDS: Pantoprazole DR 40 MG TAB PO SCH (09:48)
[2024-02-08] MEDS: Furosemide 20 MG TAB PO SCH (09:48)
[2024-02-09 04:58] LABS: Anion Gap 13 mmol/L (10-20); BUN (Urea Nitrogen) 14 mg/dL (9.8-20.1); Calc. Creatinine Clearance 120 mL/min (70-130); Calcium 8.5 mg/dL (7.8-10.44); Carbon Dioxide 20 mmol/L (23-31); Chloride 101 mmol/L (98-107); Estimated GFR 92; Glucose 106 mg/dL (83-110); Hematocrit 34.2 % (36.0-47.0); Mean Corpuscular HGB CONC 32.2 g/dL (32.0-36.0); Mean Corpuscular Hemoglobin 30.2 pg (27.0-31.0); Mean Platelet Volume 11.1 fL (7.4-10.4); Platelet Count 133 10x3/uL (130-400); Potassium 3.6 mmol/L (3.5-5.1); RBC Distribution Width 15.1 % (11.5-14.5); Red Blood Cell (RBC) Count 3.64 mill/uL (4.20-5.40); Sodium 130 mmol/L (136-145)
[2024-02-09 05:36] LABS: Large Platelets 1.7 % (0-5); Lymphocytes 13 % (21-51); Monocytes 6 % (0-10); Neutrophil 81 % (42-75); Platelet Adequacy Comment Platelets Normal; RBC Morphology Within Normal Limits; Smudge Cells 6.8 %
[2024-02-09] MEDS: Mometasone 200 MCG/Formoterol 5 MCG 120 PUFF INHALER INH SCH (19:26)
[2024-02-10 06:04] LABS: Anion Gap 14 mmol/L (10-20); BUN (Urea Nitrogen) 12 mg/dL (9.8-20.1); Calc. Creatinine Clearance 115 mL/min (70-130); Calcium 8.6 mg/dL (7.8-10.44); Carbon Dioxide 18 mmol/L (23-31); Chloride 102 mmol/L (98-107); Estimated GFR 92; Glucose 84 mg/dL (83-110); Potassium 3.6 mmol/L (3.5-5.1); Sodium 130 mmol/L (136-145)
[2024-02-10 07:13] LABS: #Basophils Less than 0.03 10x3/uL (0.0-0.2); #Eosinophils Less than 0.03 10x3/uL (0.0-0.7); %Basophils 0.1 % (0.0-1.0); %Eosinophils 0.2 % (0.0-10.0); %Lymphocytes 9.5 % (21.0-51.0); %Monocytes 8.4 % (0.0-10.0); %Neutrophils 81.3 % (42.0-75.0); Hematocrit 36.8 % (36.0-47.0); Hemoglobin 11.8 g/dL (12.0-16.0); Mean Corpuscular HGB CONC 32.1 g/dL (32.0-36.0); Mean Corpuscular Hemoglobin 29.9 pg (27.0-31.0); Mean Corpuscular Volume 93.2 fL (78.0-98.0); Mean Platelet Volume 10.4 fL (7.4-10.4); Platelet Count 169 10x3/uL (130-400); RBC Distribution Width 15.2 % (11.5-14.5); Red Blood Cell (RBC) Count 3.95 mill/uL (4.20-5.40)
[2024-02-10] MEDS: Ipratropium/Albuterol 3 ML NEB NEB SCH (14:00)
[2024-02-11 12:14] VITALS: BP 146/67; TEMP 98.1
== END 2024-02-11 14:13 | disposition home or self-care (01) | DRG 189 ==
LOC: ERS 09:35 → OBS 16:41 → OBSVTOIN 02-08 18:04
PROVIDERS: ADMIT Student in an Organized Health Care Education/Training Program; ATTEND Student in an Organized Health Care Education/Training Program
PROC: 4A033R1 Measurement of Arterial Saturation, Peripheral, Percutaneous Approach (ICD-10-PCS; principal; 2024-02-07)
DX: J96.01 Acute respiratory failure with hypoxia (principal); I21.9 Acute myocardial infarction, unspecified; J44.1 Chronic obstructive pulmonary disease with (acute) exacerbation; E22.2 Syndrome of inappropriate secretion of antidiuretic hormone; I50.22 Chronic systolic (congestive) heart failure; E87.6 Hypokalemia; K21.9 Gastro-esophageal reflux disease without esophagitis; I11.0 Hypertensive heart disease with heart failure; Z88.2 Allergy status to sulfonamides; Z79.82 Long term (current) use of aspirin; Z90.89 Acquired absence of other organs; Z90.49 Acquired absence of other specified parts of digestive tract; Z98.890 Other specified postprocedural states; D69.6 Thrombocytopenia, unspecified
CPT/HCPCS: 36415; 36600; 71045; 80048; 80053; 82805; 83880; 84484; 85025; 93005; 94640; 94644; 94660; G0378; J7512; J7620